=== PATIENT | female | born 1985 | race Caucasian/White ===

== ENCOUNTER 2016-11-20 04:20 | Observation (INO) | payer MEDICARE, MEDICAID ==
[2016-11-20] MEDS ORDERED: Dextrose 50% SYRINGE Inj (50 ml) ONE (04:31)
[2016-11-20 04:36] VITALS: BMI 26.4
[2016-11-20] MEDS ORDERED: Dextrose 50% SYRINGE Inj (50 ml) IVP STA ×2 (04:39→04:42)
--- NOTE | 2016-11-20 04:45 | ED PDOC ---
Arrival/HPI - General Chief Complaint: Medical Clearance Time Seen by Provider: 11/20/16 04:22 Historian: Patient, EMS - Critical Care Critical Care Minutes: 30 minutes Narrative Critical Care (Text): hypoglycemia management - History of Present Illness Narrative History of Present Illness (Text): 11/20/16 04:42 Elsy Beauchamp is a 31 year old female, with a history of hypertension, diabetes , ESRD on dialysis, CABG with stents, and gastropariesis, presents to the emergency department via ambulance for evaluation hypoglycemia with blood glucose level of 29 mg/dl. Patient's daughter called the ambulance after patient became unconscious. En route, patient was given 1mg glucagon. Patient is alert, oriented X3 in the ed and is able to answer questions in complete sentences. Patient reports that she took her last insulin shot at 6 p.m. yesterday evening and reports of having a small meal last night. Oscar fever, chills, cough, difficulty breathing, abdominal pain, nausea, vomiting, diarrhea , or any other complaints, She is unsure of the possible causes for the symptoms. Denies any drug or alcohol use. Time/Duration: Prior to Arrival Symptom Onset: Gradual Severity Level: Moderate Activities at Onset: Light Context: Home Past Medical History - Provider Review Nursing Documentation Reviewed: Yes - Infectious Disease Hx of Infectious Diseases: None - Tetanus Immunization Tetanus Immunization: Unknown - Cardiac Hx Cardiac Disorders: Yes Hx Hypertension: Yes Hx Peripheral Edema: Yes (+2 edema to lower left leg ankle and foot) - Pulmonary Hx Respiratory Disorders: No Hx Pneumonia: No - Neurological Hx Neurological Disorder: No - HEENT Hx HEENT Disorder: Yes (eyeglasses) - Renal Hx Renal Disorder: Yes (anuria) Hx Dialysis: Yes ([facility]) - Endocrine/Metabolic Hx Diabetes Mellitus Type 1: Yes - Hematological/Oncological Hx Blood Disorders: No Hx Anemia: No - Integumentary Other/Comment: lle dark colored scarring from lle sx, dry discolored skin to ankle and foot, with +2 edema to lle ankle and foot pitting, multiple tatoos, small red foot ulcer to bottom of left foot >5cm x 1cm, multiple dry skin areas and discolorations ble - Musculoskeletal/Rheumatological Hx Falls: No - Gastrointestinal Hx Gastroesophageal Reflux: Yes - Genitourinary/Gynecological Hx Genitourinary Disorders: Yes (pt does not void) Other/Comment: lmp 4 yrs ago - Psychiatric Hx Anxiety: Yes Hx Depression: Yes Hx Substance Use: No - Surgical History Hx Appendectomy: Yes Hx Cardiac Catheterization: Yes Hx Coronary Stent: Yes (x6) Other/Comment: pt has old valarie shunt not in use and right arm fistula that is used for dialysis, c section, pt tripped and fx left leg and left ft had sx 2014 had hardware removed march 2016, pt denies fall, just tripped, r cw pac - Anesthesia Hx Anesthesia: Yes Hx Anesthesia Reactions: No Hx Malignant Hyperthermia: No - Suicidal Assessment Feels Threatened In Home Enviroment: No Family/Social History - Physician Review Nursing Documentation Reviewed: Yes Family/Social History: No Known Family HX Smoking Status: Never Smoked Hx Alcohol Use: No Hx Substance Use: No Hx Substance Use Treatment: No Allergies/Home Meds Allergies/Adverse Reactions: Allergies acetaminophen [From Percocet] Adverse Reaction (Verified 05/22/16 18:33) RASH codeine Adverse Reaction (Verified 05/22/16 18:33) RASH morphine Adverse Reaction (Verified 05/22/16 18:33) RASH oxycodone HCl [From Percocet] Adverse Reaction (Verified 05/22/16 18:33) RASH flu shot Adverse Reaction (Uncoded 05/22/16 18:33) SHORTNESS OF BREATH Home Medications: Home Meds Medication Instructions Recorded Confirmed Atorvastatin [Lipitor] 40 mg PO HS 05/23/14 07/07/16 Clonidine HCl [Catapres] 0.3 mg PO TID 05/23/14 07/07/16 Clopidogrel [Plavix] 75 mg PO DAILY 05/23/14 07/07/16 Metoclopramide HCl [Reglan] 5 mg PO DAILY 05/23/14 07/07/16 Nifedipine [Nifedipine ER] 90 mg PO DAILY 05/23/14 07/07/16 Prochlopera 10 mg PO DAILY 05/23/14 07/07/16 Sevelamer Carbonate [Renvela] 800 mg PO TID 05/23/14 07/07/16 clonazePAM [Klonopin] 0.5 mg PO BID 05/23/14 07/07/16 Aspirin [Aspirin Chewable] 81 mg PO DAILY 05/21/16 07/07/16 Ergocalciferol (Vitamin D2) 50,000 units PO Q30D 05/21/16 07/07/16 [Vitamin D2] Isosorbide Mononitrate [Imdur] 120 mg PO DAILY 05/21/16 07/07/16 Valsartan [Diovan] 160 mg PO DAILY 05/21/16 07/07/16 Metoprolol Tartrate [Lopressor] 50 mg PO BID 05/23/16 07/07/16 Levetiracetam [Keppra] 500 mg PO DAILY 06/26/16 07/07/16 Review of Systems - Physician Review All systems were reviewed & negative as marked: Yes - Review of Systems Constitutional: Other (hypoglycemia ). absent: Fatigue, Fevers Respiratory: absent: SOB, Cough, Sputum Cardiovascular: absent: Chest Pain Gastrointestinal: absent: Abdominal Pain, Diarrhea, Nausea, Vomiting Neurological: absent: Headache, Dizziness Physical Exam Vital Signs Reviewed: Yes Vital Signs Temp Pulse Resp BP Pulse Ox 11/20/16 05:15 110 H 14 147/85 100 11/20/16 05:00 112 H 14 132/86 100 11/20/16 04:45 94.9 F L 114 H 16 169/99 H 88 L Temperature: Hypothermic Blood Pressure: Hypertensive Pulse: Tachycardic Respiratory Rate: Normal Appearance: Positive for: Non-Toxic Pain Distress: Mild Mental Status: Positive for: Alert and Oriented X 3, other (Alert and OX3, but drowsy ) - Systems Exam Head: Present: Atraumatic, Normocephalic Pupils: Present: PERRL Extroacular Muscles: Present: EOMI Conjunctiva: Present: Normal Nose (Internal): Present: Other (right nasal trumpet placed by EMT, removed in the ed. Dried blood in right nares ) Respiratory/Chest: Present: Rhonchi. No: Respiratory Distress, Accessory Muscle Use Cardiovascular: Present: Regular Rate and Rhythm, Normal S1, S2. No: Murmurs Skin: Present: Warm, Dry, Normal Color. No: Rashes Psychiatric: Present: Alert, Oriented x 3 Medical Decision Making ED Course and Treatment: 11/20/16 04:55 Impression: A 31 year old female who presents to the ed for hypoglycemia. Blood glucose level at home, per EMS, was 29 mg/dl. At ED, patient is alert, Oriented X3 but drowsy. She is able to communicate in full sentences. Differential Diagnosis: Hypoglycemia secondary to medication vs. diet. r/o infections pathology Plan: -- EKG -- Labs -- CXR -- Dextrose 5% -- Dextrose 50% injection -- Zofran -- Blood culture Progress Notes: 11/20/16 04:58 Patient with a glucose level of 29. Administered Dextrose 50% X2 immediately upon arrival to ED. 11/20/16 05:07 EKG interpreted by me: Sinus Tachycardia @ 114 bpm with bifascicular block. 11/20/16 05:24 CXR interpreted by me: No acute disease. 11/20/16 05:31 Patient was hypothermic with a temp of 94F. Patient placed on Shruti hugger. 11/20/16 06:59 Dr. Gómez evaluated the patient and wanted to admit to Telemetry. Admission changed because the patient is drowsy and with some altered mental status. - Lab Interpretations Lab Results: 11/20/16 04:37 11/20/16 04:37 Lab Results 11/20/16 05:10: POC Glucose (mg/dL) 172 H 11/20/16 04:37: WBC 9.0 D, RBC 4.21, Hgb 13.0, Hct 37.6, MCV 89.3, MCH 30.9, MCHC 34.6, RDW 17.3 H, Plt Count 145, MPV 11.2 H, Gran % 63.3, Lymph % (Auto) 18.1 L, [place] % (Auto) 12.2 H, Eos % (Auto) 5.6 H, Baso % (Auto) 0.8, Gran # 5.69 , Lymph # 1.6, [place] # 1.1 H, Eos # 0.5, Baso # 0.07, PT 12.8 H, INR 1.19 H, APTT 30.3, Sodium 133, Potassium 4.1, Chloride 90 L, Carbon Dioxide 30, Anion Gap 17, BUN 67 H, Creatinine 5.3 H, Est GFR ( Amer) 11, Est GFR (Non-Af Amer) 9, Random Glucose 64 L, Calcium 9.9, Phosphorus 5.1 H, Magnesium 2.4 H, Total Bilirubin 1.2, AST 61 H, ALT 23, Alkaline Phosphatase 472 H, Total Protein 8.6 H, Albumin 4.3, Globulin 4.3, Albumin/Globulin Ratio 1.0 L 11/20/16 04:23: POC Glucose (mg/dL) 30 L* I have reviewed the lab results: Yes - RAD Interpretation Radiology Orders: 11/20/16 04:40 CHEST PORTABLE [RAD] Stat Scientific Advisor: ED Physician - EKG Interpretation Interpreted by ED Physician: Yes Type: 12 lead EKG - Medication Orders Current Medication Orders: Discontinued Medications Dextrose (Dextrose 50% Inj) Confirm Administered Dose 50 ml .ROUTE .STK-MED ONE Stop: 11/20/16 04:32 Last Admin: 11/20/16 04:45 Dose: Dextrose (Dextrose 50% Inj) 50 ml IVP STAT STA Stop: 11/20/16 04:40 Last Admin: 11/20/16 04:42 Dose: 50 ML IVP Administration Document 11/20/16 04:42 GMD (Rec: 11/20/16 04:42 GMD [id number]) Charges for Administration # of IVP Administrations 1 Dextrose (Dextrose 50% Inj) 50 ml IVP STAT STA Stop: 11/20/16 04:43 Dextrose/Sodium Chloride (Dextrose 5%/0.45% Ns 1000 Ml) 250 mls @ 75 mls/hr IV .Q3H20M TOMEKA Last Admin: 11/20/16 04:56 Dose: 75 MLS/HR eMAR Start Stop Document 11/20/16 04:56 YP (Rec: 11/20/16 04:56 YP [id number]) Intravenous Solution Start Date 11/20/16 Start Time 04:56 Ondansetron HCl (Zofran Inj) 4 mg IVP STAT STA Stop: 11/20/16 04:56 Last Admin: 11/20/16 05:01 Dose: 4 MG IVP Administration Document 11/20/16 05:01 YP (Rec: 11/20/16 05:01 YP [id number]) Charges for Administration # of IVP Administrations 1 Ondansetron HCl (Zofran Inj) Confirm Administered Dose 4 mg .ROUTE .STK-MED ONE Stop: 11/20/16 05:01 Last Admin: 11/20/16 05:01 Dose: - Scribe Statement The provider has reviewed the documentation as recorded by the Fani Palacio Provider Attestation: All medical record entries made by the Scribe were at my direction and personally dictated by me. I have reviewed the chart and agree that the record accurately reflects my personal performance of the history, physical exam, medical decision making, and the department course for this patient. I have also personally directed, reviewed, and agree with the discharge instructions and disposition. Disposition/Present on Arrival - Present on Arrival Any Indicators Present on Arrival: Yes History of DVT/PE: No History of Uncontrolled Diabetes: Yes Urinary Catheter: No History of Decub. Ulcer: No History Surgical Site Infection Following: None - Disposition Have Diagnosis and Disposition been Completed?: Yes Diagnosis: Hypoglycemia Disposition: HOSPITALIZED Disposition Time: 07:00 Patient Plan: Admission Patient Problems: Current Active Problems Problem Status Diagnosed Diabetic ketoacidosis Acute Hematemesis/vomiting blood Acute Hyperkalemia Acute Condition: FAIR
[2016-11-20] MEDS ORDERED: DEXTROSE IV SCH (05:00)
[2016-11-20] MEDS ORDERED: [UNRECOGNIZED DRUG - OTHER] IV SCH (05:00)
[2016-11-20 05:02] LABS: ADD MANUAL DIFF? NO
[2016-11-20 05:06] LABS: BASO # 0.07 K/mm3 (0.0-2.0); BASO % 0.8 % (0.0-3.0); EOS # 0.5 (0.0-0.7); EOS % 5.6 % (1.5-5.0); GRAN # 5.69 (1.4-6.5); GRAN % 63.3 % (50.0-68.0); HEMATOCRIT 37.6 % (36.0-48.0); LYMPH # 1.6 (1.2-3.4); LYMPH % 18.1 % (22.0-35.0); MEAN CELL VOLUME 89.3 fL (80.0-105.0); MEAN CORPUSCULAR HEMOGLOBIN 30.9 pg (25.0-35.0); MEAN CORPUSCULAR HGB CONC 34.6 g/dl (31.0-37.0); MEAN PLATELET VOLUME 11.2 fl (7.0-11.0); MONO # 1.1 (0.1-0.6); MONO % 12.2 % (1.0-6.0); PLATELET COUNT 145 10^3/uL (120.0-450.0); RED CELL DISTRIBUTION WIDTH 17.3 % (11.5-14.5)
[2016-11-20 05:14] LABS: BILIRUBIN,TOTAL 1.2 mg/dL (0.2-1.3); CALCIUM 9.9 mg/dL (8.4-10.5); MAGNESIUM 2.4 mg/dL (1.7-2.2); PHOSPHOROUS 5.1 mg/dL (2.5-4.5); POTASSIUM 4.1 mmol/L (3.6-5.0); TOTAL PROTEIN 8.6 g/dL (5.8-8.3)
[2016-11-20 05:19] LABS: INR 1.19 (0.93-1.08); PARTIAL THROMBOPLASTIN TIME 30.3 Seconds (23.7-30.8)
--- NOTE | 2016-11-20 05:52 | CP.PCM.HP ---
<SilviaShannon - Last Filed: 11/20/16 07:36> History of Present Illness - History of Present Illness History of Present Illness: PGY [address] Gómez Bed 2 31 year old female, with PMH of HTN, diabetes, ESRD on dialysis M E F at [facility], CABG with stents, and gastropariesis, was brought in by ambulance for hypoglycemia with blood glucose level of 29 mg/dl. Patient's daughter called the ambulance after patient became unconscious. En route, patient was given 1mg glucagon. Patient is alert, oriented X3 in the ed, answers in 1-2 words with short attention spans, but frequently dozing off with snores in the middle of conversations. Patient reports that she took her last insulin shot at 6 p.m. yesterday evening. Pt states that she only had a small meal last night with N/V for the past 3 days. She also complains of stomach pain but unable to provides more details due to somnolence. Pt cannot recall the name of the insulin (short vs senior living), and told me that she only take it once daily. Denies sickness recently. Denies recent change of medications or skipping doses. Pt was hypothermic on iain hugger. Sinus Tachycardia @ 114 bpm with bifascicular block. CXR showed no acute disease. ROS - Oscar fever, chills, cough, difficulty breathing, abdominal pain, nausea, vomiting, diarrhea small red foot ulcer to bottom of left foot >5cm x 1cm, PMH DM type 1 w/ neuropathy CAD s/p multiple stents, CABG HTN ESR on HD (MWF), anuric, Anemia anxiety, gastroparesis OBGYN LMP 4 years ago x1 PSH CABG, Cardiac catherterization with 6 stents AV fistulas x 2 (Old valarie shunt not in use; Right arm fistula that is used for dialysis) B/L benign breast mass removal, peritoneal dialysis catheter c section Surgery on left leg (pt tripped and fx left leg and left ft had sx 12/2014 had hardware removed march 2016) Appendectomy FH Unknown (Adopted) SH Denies smoking, Etoh, illicit drug use Lives with 9 year old daughter All Acetaminophen Percocet codeine morphine oxycodone flu shot Adverse Reaction - SHORTNESS OF BREATH Med clonazePAM [Klonopin] 0.5 mg PO BID Valsartan [Diovan] 160 mg PO DAILY Sevelamer Carbonate [Renvela] 800 mg PO TID Prochlopera 10 mg PO DAILY Nifedipine [Nifedipine ER] 90 mg PO DAILY Metoprolol Tartrate [Lopressor] 50 mg PO BID Metoclopramide HCl [Reglan] 5 mg PO DAILY Levetiracetam [Keppra] 500 mg PO DAILY Isosorbide Mononitrate [Imdur] 120 mg PO DAILY Lispro 4u SC AC Ergocalciferol (Vitamin D2) 50,000 units PO Q30D Clopidogrel [Plavix] 75 mg PO DAILY Clonidine HCl [Catapres] 0.3 mg PO TID Aspirin [Aspirin Chewable] 81 mg PO DAILY Lipitor 40 HS PMD: Yaneli Out pt cards: Nathan Outpt nephron: Phil Pharm: [facility] ([place]) Present on Admission - Present on Admission Any Indicators Present on Admission: No Past Patient History - Infectious Disease Hx of Infectious Diseases: None - Tetanus Immunizations Tetanus Immunization: Unknown - Past Medical History & Family History Past Medical History?: Yes - Past Social History Smoking Status: Never Smoked - CARDIAC Hx Cardiac Disorders: Yes Hx Hypertension: Yes Hx Peripheral Edema: Yes (+2 edema to lower left leg ankle and foot) - PULMONARY Hx Respiratory Disorders: No Hx Pneumonia: No - NEUROLOGICAL Hx Neurological Disorder: No - HEENT Hx HEENT Problems: Yes (eyeglasses) - RENAL Hx Chronic Kidney Disease: Yes (anuria) Hx Dialysis: Yes ([facility]) - ENDOCRINE/METABOLIC Hx Diabetes Mellitus Type 1: Yes - HEMATOLOGICAL/ONCOLOGICAL Hx Blood Disorders: No Hx Anemia: No - INTEGUMENTARY Other/Comment: lle dark colored scarring from lle sx, dry discolored skin to ankle and foot, with +2 edema to lle ankle and foot pitting, multiple tatoos, small red foot ulcer to bottom of left foot >5cm x 1cm, multiple dry skin areas and discolorations ble - MUSCULOSKELETAL/RHEUMATOLOGICAL Hx Falls: No - GASTROINTESTINAL Hx Gastroesophageal Reflux: Yes - GENITOURINARY/GYNECOLOGICAL Hx Genitourinary Disorders: Yes (pt does not void) Other/Comment: lmp 4 yrs ago - PSYCHIATRIC Hx Anxiety: Yes Hx Depression: Yes Hx Substance Use: No - SURGICAL HISTORY Hx Appendectomy: Yes Hx Cardiac Catheterization: Yes Hx Coronary Stent: Yes (x6) Other/Comment: pt has old valarie shunt not in use and right arm fistula that is used for dialysis, c section, pt tripped and fx left leg and left ft had sx 2014 had hardware removed march 2016, pt denies fall, just tripped, r cw pac - ANESTHESIA Hx Anesthesia: Yes Hx Anesthesia Reactions: No Hx Malignant Hyperthermia: No Meds Allergies/Adverse Reactions: Allergies Allergy/AdvReac Type Severity Reaction Status Date / Time acetaminophen [From Percocet] AdvReac RASH Verified 11/20/16 12:51 codeine AdvReac RASH Verified 11/20/16 12:51 morphine AdvReac RASH Verified 11/20/16 12:51 oxycodone HCl [From Percocet] AdvReac RASH Verified 11/20/16 12:51 flu shot AdvReac SHORTNESS Uncoded 11/20/16 12:51 OF BREATH Physical Exam - Constitutional Additional comments: Somnolance, only answer in 1-2 words, dozed off to sleep with snores, easily arousable - Head Exam Head Exam: ATRAUMATIC, NORMOCEPHALIC - Eye Exam Eye Exam: EOMI, Normal appearance. absent: Scleral icterus - ENT Exam ENT Exam: Mucous Membranes Moist - Neck Exam Neck exam: Negative for: Meningismus - Respiratory Exam Respiratory Exam: Clear to Auscultation Bilateral. absent: Rales, Rhonchi, Wheezes - Cardiovascular Exam Cardiovascular Exam: REGULAR RHYTHM, +S1, +S2. absent: Systolic Murmur - GI/Abdominal Exam GI & Abdominal Exam: Normal Bowel Sounds, Soft, Tenderness Additional comments: Pt states that she has epigastric pain, but no grimace upon palpation. - Extremities Exam Extremities exam: Positive for: normal capillary refill, pedal edema (1+ pitting b/l LLE. Red healed arterial ulcer R anterior leg. thin long skin effacement on R rowell. L ankle swollen with no increased warm or pain), pedal pulses present - Psychiatric Exam Additional comments: Somnolance - Skin Skin Exam: Dry, Warm Additional comments: On iain hebert Results - Vital Signs Recent Vital Signs: Last Vital Signs Temp 94.9 F L 11/20/16 04:45 Pulse 110 H 11/20/16 05:15 Resp 14 11/20/16 05:15 BP 147/85 03/17/17 05:15 Pulse Ox 100 11/20/16 05:15 - Labs Result Diagrams: 11/20/16 04:37 11/20/16 04:37 Labs: Laboratory Results - last 24 hr 11/20/16 11/20/16 11/20/16 04:23 04:37 05:10 WBC 9.0 D RBC 4.21 Hgb 13.0 Hct 37.6 MCV 89.3 MCH 30.9 MCHC 34.6 RDW 17.3 H Plt Count 145 MPV 11.2 H Gran % 63.3 Lymph % (Auto) 18.1 L [place] % (Auto) 12.2 H Eos % (Auto) 5.6 H Baso % (Auto) 0.8 Gran # 5.69 Lymph # 1.6 [place] # 1.1 H Eos # 0.5 Baso # 0.07 PT 12.8 H INR 1.19 H APTT 30.3 Sodium 133 Potassium 4.1 Chloride 90 L Carbon Dioxide 30 Anion Gap 17 BUN 67 H Creatinine 5.3 H Est GFR ( Amer) 11 Est GFR (Non-Af Amer) 9 POC Glucose (mg/dL) 30 L* 172 H Random Glucose 64 L Calcium 9.9 Phosphorus 5.1 H Magnesium 2.4 H Total Bilirubin 1.2 AST 61 H ALT 23 Alkaline Phosphatase 472 H Total Protein 8.6 H Albumin 4.3 Globulin 4.3 Albumin/Globulin Ratio 1.0 L Assessment & Plan - Assessment and Plan (Free Text) Plan: 31 year old female, with PMH of HTN, diabetes, ESRD on dialysis M [facility] F at [facility], CABG with stents, and gastropariesis, was brought in by ambulance for hypoglycemia of 29, (last dose insulin 2 u at 6pm). She was found hypothermic 94.9 on iain hugger, Sinus Tachycardia @ 114 bpm with bifascicular block. CXR showed no acute disease. Pt was somnolance but easily arousable. Pt complained of N/V x 3 days with epigastric pain. She is admitted for AMS, hypoglycemia, and Sepsis unknown source. Sepsis of unknown source - hypothermia Keep on iain hugger. D/C at rectal temp 98 - vanco 1g x 1, cefepime - ID consult - Anuric, no urine culture - blood culture sent Somnolance, s/p LOC - due to hypothermic, hypoglycemic - R/O infection causes Septic work up; When pt stable, consider CT Abdomin and pelvis - R/O ischemic cause If mentation does not improve, consider CT head - R/O iatrogenic cause insulin overdose? - R/O Hypercapnia ABG shock panel - Hold klonopin Hypoglycemia Hx IDDM - d/c fluid for now - accu check q3 - zofran PRN - hold insulin - a1c Epigastric pain with Hx N/V x 3 days Transaminitits - check amylase, lipase - hepatitis panel JAUN on ESRD - Nephro consult Prophylaxis - protonix, heparin SC q8 HTN - continue home Valsartan, Nifedipine, Lopressor, Clonidine CAD s/p stents - Imdur, plavix, ASA, lipitor HypoPhos/ESRD - continue home Sevelamer, D2, Gastroparesis - continue Reglan DM neuropathy - Keppra R/S/D/w Dr. Gómez - Date & Time Date: 11/20/16 Time: 06:23 <Bang Gómez Q - Last Filed: 11/24/16 22:55> Results - Vital Signs Recent Vital Signs: Last Vital Signs Temp 99.0 F 11/21/16 12:00 Pulse 80 11/21/16 17:13 Resp 20 11/21/16 12:00 BP 159/99 H 11/21/16 12:00 Pulse Ox 100 11/21/16 06:00 - Labs Result Diagrams: 11/21/16 07:59 11/21/16 07:59 Attending/Attestation - Attestation I have personally seen and examined this patient.: Yes I have fully participated in the care of the patient.: Yes I have reviewed all pertinent clinical information: Yes
[2016-11-20] MEDS ORDERED: Cefepime 1gm in NS 100ml 100 ML IVPB ONE (07:20)
[2016-11-20] MEDS ORDERED: Vancomycin 500 mg Inj IVPB ONE (07:20)
[2016-11-20] MEDS ORDERED: Vancomycin 1gm in NS 250ml 250 ML IVPB STA (07:21)
[2016-11-20 07:49] LABS: AMYLASE 145 U/L (35-125); LIPASE 123 U/L (23-300)
[2016-11-20 08:16] LABS: ARTERIAL BLOOD GAS HCO3 27.2 mmol/L (21-28); ARTERIAL BLOOD GAS PH 7.39 (7.35-7.45)
--- NOTE | 2016-11-20 08:56 | RAD ---
HISTORY: Sepsis Patient COMPARISON: 07/07/2016 FINDINGS: LUNGS: No active pulmonary disease. PLEURA: No significant pleural effusion identified, no pneumothorax apparent. CARDIOVASCULAR: Moderate cardiomegaly OSSEOUS STRUCTURES: Sternal wires VISUALIZED UPPER ABDOMEN: Normal. OTHER FINDINGS: None. IMPRESSION: No active disease.
[2016-11-20] MEDS ORDERED: CLONIDINE HCL 0.3 MG PO SCH (10:00)
[2016-11-20] MEDS ORDERED: Ergocalciferol 50,000 Intl Units Cap PO SCH ×2 (10:00)
[2016-11-20] MEDS ORDERED: Non Formulary Medication (Sevelamer Carbonate [Renvela] 800 MG) PO SCH (10:00)
--- NOTE | 2016-11-20 10:36 | CARD ---
APPROVED REPORT EKG Measurement Heart [id number] <Conclusion> Sinus tachycardia Right bundle branch block LAHB Inferior infarct, old NSSTW changes
[2016-11-20] MEDS: NIFEdipine 90 mg ER Tab PO SCH (12:17)
--- NOTE | 2016-11-20 14:16 | CT ---
PROCEDURE: CT HEAD WITHOUT CONTRAST. HISTORY: AMS, Lethargy COMPARISON: 02/15/2014 TECHNIQUE: Axial computed tomography images were obtained through the head/brain without intravenous contrast. Radiation dose: Total exam DLP = 688 mGy-cm. FINDINGS: HEMORRHAGE: No intracranial hemorrhage. BRAIN: No mass effect or edema. No atrophy or chronic microvascular ischemic changes. VENTRICLES: Unremarkable. No hydrocephalus. CALVARIUM: Unremarkable. PARANASAL SINUSES: Unremarkable as visualized. No significant inflammatory changes. MASTOID AIR CELLS: Unremarkable as visualized. No inflammatory changes. OTHER FINDINGS: None. IMPRESSION: Normal CT of the Head.
--- NOTE | 2016-11-20 15:24 | CON ---
DATE: 11/20/2016 REASON FOR CONSULTATION: Hyponatremia, hypertension, need for dialysis. HISTORY OF PRESENTING ILLNESS: A 31-year-old lady with history of NIDDM, hypertension, ESRD, depende nce on pain medication, CHF, CAD, is admitted because of finding of low blood sugar at home. The pat ient is currently very groggy, but arousable. As per the ER note, patient's daughter called the ambu gala because patient was found unconscious. Her blood glucose was 29. She was given 1 mg of glucag on . She gave a history of nausea and vomiting for 3 days prior to admission. She also reporte d some abdominal pain. In the Emergency Room, she was found to be hypothermic, tachycardic. Blood pressure was 147/85, temp erature was 94.9. PAST MEDICAL AND SURGICAL HISTORY: IDDM, CAD, hypertension, ESRD, anemia, gastroparesis, dependence on pain medication, anemia of chronic disease. FAMILY HISTORY: Not available. SOCIAL HISTORY: No smoking, no alcohol use, no IV drug abuse. ALLERGIES: TYLENOL, PERCOCET, CODEINE, MORPHINE, OXYCODONE. MEDICATIONS AT HOME: Diovan 160, sevelamer 800 t.i.d., nifedipine ER 90, Lopressor 50 b.i.d., Reglan 5 daily, Keppra 500, insulin 120, Plavix 75, clonidine 0.3 three times a day, aspirin, Lipitor. REVIEW OF SYSTEMS: All systems are reviewed, pertinent positives are mentioned in the history of pre senting illness, rest unremarkable. PHYSICAL EXAMINATION: GENERAL: A young lady, lying in bed, barely arousable. VITAL SIGNS: Blood pressure 129/80, heart rate 115, respiratory rate 18, temperature 99, T-max is 99 . HEENT: Normocephalic, atraumatic, pupils sluggish, reactive to light. NECK: Supple, no JVD. LUNGS: Bilateral equal air entry. CARDIAC: S1, S2, regular rate and rhythm, no murmur, no rub. ABDOMEN: Obese, distended, soft, nontender, bowel sounds present. EXTREMITIES: 2+ pitting edema of the lower extremities. INTAKE AND OUTPUT: Not charted. LABORATORY DATA: Sodium 133, potassium 4.1, chloride 90, CO2 30, BUN 67, creatinine 5.3, glucose 64, calcium 9.9, phosphorus 5.1, magnesium 2.4, AST 61, ALT 23, albumin 4.3. Amylase 145, lipase 123. Hepatitis profile negative. WBC 9.0, hemoglobin 13, hematocrit 37.6, platelets 145. ASSESSMENT: 1. Hypoglycemia. 2. Nausea, vomiting, abdominal pain. 3. Hyponatremia/alkalemia, likely secondary to vomiting. 4. Hypertension, well controlled. 5. Insulin-dependent diabetes mellitus. 6. End-stage renal disease. PLAN: 1. Check hemoglobin A1c. 2. Monitor fingersticks closely. 3. Dialysis today. 4. Ultrafiltrate about 2 kilograms. Thank you for the courtesy of this consultation. We will follow this patient closely with you. Olena Lubin MD cc: [id number] TT: 11/20/2016 14:22:22 Confirmation # [id number] Dictation # [id number] 11/20/2016 14:23:54
--- NOTE | 2016-11-20 18:13 | CP.PCM.CON ---
History of Present Illness - History of Present Illness History of Present Illness: Infectious Disease Consultation: November 20, 2016 31 yo female with multiple medical issues including chronic end stage organ damage such as ESRD on HD. Patient with known non-compliance with medications and frequent [place] [facility] [place] [facility] [place] [facility] [place] Patient presents this time for hypoglycemia and hypothermia. Blood glucose was as low as 29 in the field. She apparently lost consciousness at home. She was [place] [facility]. Patient was tachycardic as well. The patient is currently at HD. Patient is frequently in the hospital. PMHx: Type I Diabetes Mellitus with diabetic neuropathy, Coronary Artery Disease, Hypertension, ESRD on HD, Anemia, Anxiety, gastroparesis. PSHx: CABG, , AV fistula x 2, Left leg ORIF, appendectomy Allergies: Acetaminophen, Codeine, Morphine, Oxycodone HCl, flu shot Social Hx: Patient denies tobacco, EtOH, or illicit drug use. Has 9 yo daughter Active Medications Aspirin (Aspirin Chewable) 81 mg PO DAILY [facility] Last Admin: 11/20/16 10:26 Dose: 81 mg Atorvastatin Calcium (Lipitor) 40 mg PO HS [facility] Clopidogrel Bisulfate (Plavix) 75 mg PO DAILY [facility] Last Admin: 11/20/16 10:26 Dose: 75 mg Ergocalciferol (Drisdol 50,000 Intl Units Cap) 1 cap PO Q30D [facility] Last Admin: 11/20/16 10:26 Dose: 1 cap Heparin Sodium (Porcine) (Heparin) 5,000 units SC Q8 [facility] PRN Reason: Protocol Last Admin: 11/20/16 13:43 Dose: Not Given Isosorbide Mononitrate (Imdur) 120 mg PO DAILY [facility] Last Admin: 11/20/16 10:26 Dose: 120 mg Levetiracetam (Keppra) 500 mg PO DAILY [facility] Last Admin: 11/20/16 10:26 Dose: 500 mg Metoclopramide HCl (Reglan) 5 mg PO DAILY [facility] Last Admin: 11/20/16 10:26 Dose: 5 mg Metoprolol Tartrate (Lopressor) 50 mg PO BID [facility] Last Admin: 11/20/16 10:26 Dose: 50 mg Nifedipine (Procardia Xl) 90 mg PO DAILY [facility] Last Admin: 11/20/16 12:17 Dose: Not Given Ondansetron HCl (Zofran Inj) 2 mg IVP Q4 PRN PRN Reason: Nausea/Vomiting Pantoprazole Sodium (Protonix Inj) 40 mg IVP DAILY [facility] Last Admin: 11/20/16 10:19 Dose: 40 mg Sevelamer HCl (Renagel) 800 mg PO TID [facility] Last Admin: 11/20/16 13:44 Dose: Not Given Family Hx: none given ROS: Patient denies fevers, chills, headaches, dizziness, chest pain, abdominal pain , melena, hematuria, hematemesis, diarrhea, vision loss, hearing loss. Past Patient History - Infectious Disease Hx of Infectious Diseases: None - Tetanus Immunizations Tetanus Immunization: Unknown - Past Medical History & Family History Past Medical History?: Yes - Past Social History Smoking Status: Current Some Days Smoker - CARDIAC Hx Cardiac Disorders: Yes (CABG WITH 6 HEART STENTS) Hx Hypertension: Yes Hx Peripheral Edema: Yes (+2 edema to lower left leg ankle and foot) - PULMONARY Hx Respiratory Disorders: Yes (PULMONARY EDEMA) Hx Pneumonia: No - NEUROLOGICAL Hx Neurological Disorder: Yes (NEUROPATHY) - HEENT Hx HEENT Problems: Yes (eyeglasses) - RENAL Hx Chronic Kidney Disease: Yes (anuria) Hx Dialysis: Yes ([facility]) Date of Last Dialysis Treatment: 11/18/16 - ENDOCRINE/METABOLIC Hx Endocrine Disorders: Yes (UNCONTROLLED DM) Hx Diabetes Mellitus Type 1: Yes - HEMATOLOGICAL/ONCOLOGICAL Hx Blood Disorders: No Hx Anemia: No - INTEGUMENTARY Other/Comment: lle dark colored scarring from lle sx, dry discolored skin to ankle and foot, with +2 edema to lle ankle and foot pitting, multiple tatoos, small red foot ulcer to bottom of left foot >5cm x 1cm, multiple dry skin areas and discolorations ble - MUSCULOSKELETAL/RHEUMATOLOGICAL Hx Musculoskeletal Disorders: Yes Hx Falls: Yes Hx Fractures: Yes (FX LEG AND /FOOT LEFT,HARDWARE REMOVED MARCH 2016) - GASTROINTESTINAL Hx Gastrointestinal Disorders: Yes (GI BLEED,GASTROPARESIS,APPENDECTOMY,) Hx Gall Bladder Disease: Yes (CHOLECYSTITIS) Hx Gastroesophageal Reflux: Yes Hx Pancreatitis: Yes - GENITOURINARY/GYNECOLOGICAL Hx Genitourinary Disorders: Yes (pt does not void-ANURIC, C SECTION X 1) Other/Comment: lmp 4 yrs ago - PSYCHIATRIC Hx Psychophysiologic Disorder: Yes Hx Anxiety: Yes Hx Depression: Yes Hx Substance Use: No - SURGICAL HISTORY Hx Surgeries: Yes Hx Appendectomy: Yes Hx Cardiac Catheterization: Yes Hx Coronary Stent: Yes (x6) Other/Comment: pt has old valarie shunt not in use and right arm fistula that is used for dialysis, c section, pt tripped and fx left leg and left ft had sx 2014 had hardware removed march 2016, pt denies fall, just tripped, r cw pac - ANESTHESIA Hx Anesthesia: Yes Hx Anesthesia Reactions: No Hx Malignant Hyperthermia: No Meds Allergies/Adverse Reactions: Allergies Allergy/AdvReac Type Severity Reaction Status Date / Time acetaminophen [From Percocet] AdvReac RASH Verified 11/20/16 12:51 codeine AdvReac RASH Verified 11/20/16 12:51 morphine AdvReac RASH Verified 11/20/16 12:51 oxycodone HCl [From Percocet] AdvReac RASH Verified 11/20/16 12:51 flu shot AdvReac SHORTNESS Uncoded 11/20/16 12:51 OF BREATH - Medications Medications: Current Medications Aspirin (Aspirin Chewable) 81 mg PO DAILY [facility] Last Admin: 11/20/16 10:26 Dose: 81 mg Atorvastatin Calcium (Lipitor) 40 mg PO HS [facility] Clopidogrel Bisulfate (Plavix) 75 mg PO DAILY [facility] Last Admin: 11/20/16 10:26 Dose: 75 mg Ergocalciferol (Drisdol 50,000 Intl Units Cap) 1 cap PO Q30D [facility] Last Admin: 11/20/16 10:26 Dose: 1 cap Heparin Sodium (Porcine) (Heparin) 5,000 units SC Q8 [facility] PRN Reason: Protocol Last Admin: 11/20/16 13:43 Dose: Not Given Isosorbide Mononitrate (Imdur) 120 mg PO DAILY [facility] Last Admin: 11/20/16 10:26 Dose: 120 mg Levetiracetam (Keppra) 500 mg PO DAILY [facility] Last Admin: 11/20/16 10:26 Dose: 500 mg Metoclopramide HCl (Reglan) 5 mg PO DAILY [facility] Last Admin: 11/20/16 10:26 Dose: 5 mg Metoprolol Tartrate (Lopressor) 50 mg PO BID [facility] Last Admin: 11/20/16 10:26 Dose: 50 mg Nifedipine (Procardia Xl) 90 mg PO DAILY [facility] Last Admin: 11/20/16 12:17 Dose: Not Given Ondansetron HCl (Zofran Inj) 2 mg IVP Q4 PRN PRN Reason: Nausea/Vomiting Pantoprazole Sodium (Protonix Inj) 40 mg IVP DAILY [facility] Last Admin: 11/20/16 10:19 Dose: 40 mg Sevelamer HCl (Renagel) 800 mg PO TID [facility] Last Admin: 11/20/16 13:44 Dose: Not Given Physical Exam - Constitutional Appears: Chronically Ill - Head Exam Head Exam: ATRAUMATIC, NORMOCEPHALIC - Eye Exam Eye Exam: EOMI, PERRL Pupil Exam: NORMAL ACCOMODATION, PERRL - ENT Exam ENT Exam: Mucous Membranes Moist, Normal External Ear Exam, TM's Normal Bilaterally - Neck Exam Neck exam: Positive for: Full Rom, Normal Inspection - Respiratory Exam Respiratory Exam: Clear to Auscultation Bilateral, NORMAL BREATHING PATTERN. absent: Rales, Rhonchi, Wheezes - Cardiovascular Exam Cardiovascular Exam: REGULAR RHYTHM, RRR, +S1, +S2 - GI/Abdominal Exam GI & Abdominal Exam: Normal Bowel Sounds, Soft. absent: Distended, Tenderness Additional comments: Pt claimed epigastric pain, but no reaction upon palpation or examination - Extremities Exam Additional comments: pedal edema (1+ pitting b/l LLE. Red healed arterial ulcer R anterior leg. thin long skin effacement on R rowell. L ankle swollen with no increased warm or pain) , pedal pulses present - Neurological Exam Neurological exam: Alert Additional comments: fatigue? - Skin Skin Exam: Intact, Normal Color Results - Vital Signs Recent Vital Signs: Last Vital Signs Temp 98.3 F 11/20/16 13:48 Pulse 83 11/20/16 14:00 Resp 18 11/20/16 13:48 BP 90/53 L 11/20/16 13:48 Pulse Ox 99 11/20/16 09:05 - Labs Result Diagrams: 11/20/16 04:37 11/20/16 04:37 Labs: Laboratory Results - last 24 hr 11/20/16 11/20/16 11/20/16 06:07 07:00 07:01 pCO2 pO2 HCO3 ABG pH ABG Total CO2 ABG O2 Saturation ABG Base Excess ABG Potassium Sodium Chloride Glucose Lactate FiO2 POC Glucose (mg/dL) 137 H 117 H Amylase 145 H Lipase 123 Arterial Blood Potassium Hepatitis A IgM Ab Negative Hep Bs Antigen Negative Hep B Core IgM Ab Negative Hepatitis C Antibody Negative 11/20/16 11/20/16 08:05 11:41 pCO2 45 pO2 100.0 HCO3 27.2 ABG pH 7.39 ABG Total CO2 28.6 H ABG O2 Saturation 96.4 ABG Base Excess 1.7 ABG Potassium 4.1 Sodium 137.0 Chloride 106.0 Glucose 94 Lactate 0.6 L FiO2 28.0 POC Glucose (mg/dL) 99 Amylase Lipase Arterial Blood Potassium 4.1 Hepatitis A IgM Ab Hep Bs Antigen Hep B Core IgM Ab Hepatitis C Antibody Assessment & Plan - Assessment and Plan (Free Text) Assessment: 31 yo female patient with extensive past medical history and multiple hospitalizations presenting with hypoglycemia, tachycardia, and hypothermia. [place] [facility] the past 3 days. Question of sepsis versus overdosing on her regular medications. Quintanilla cultures taken. On Cefepime and 1 dose of Vancomycin. Will review records at [facility]. Supportive care. Multiple chronic and end stage medical issues. Question of insulin overdose. Supportive care. Thank you for allowing me to participate in the care of the patient, we will follow with you.
[2016-11-21 07:01] VITALS: RESP 20; O2SAT 100
[2016-11-21 08:05] LABS: HEMATOCRIT 32.3 % (36.0-48.0); MEAN CELL VOLUME 88.7 fL (80.0-105.0); MEAN CORPUSCULAR HEMOGLOBIN 29.4 pg (25.0-35.0); MEAN CORPUSCULAR HGB CONC 33.1 g/dl (31.0-37.0); MEAN PLATELET VOLUME 11.7 fl (7.0-11.0); RED CELL DISTRIBUTION WIDTH 17.2 % (11.5-14.5)
[2016-11-21 08:16] LABS: BILIRUBIN,TOTAL 1.3 mg/dL (0.2-1.3); POTASSIUM 4.1 mmol/L (3.6-5.0); TOTAL PROTEIN 6.8 g/dL (5.8-8.3)
--- NOTE | 2016-11-21 09:15 | PN ---
DATE: 11/21/2016 SUBJECTIVE: The patient is currently seen on telemetry. She has apparently had better sugar control post-hypoglycemic episode. The patient is complaining of abdominal pain. She has a history of rachna roparesis. The patient is puffy in her face and states that there is not any way possible that she c an get through until 11/23/2016, without having an extra dialysis today. The patient will rec eive a short 2 hour dialysis today. I have discussed this with the dialysis staff. MEDICATIONS: Medication list reviewed. The patient is currently on aspirin, vitamin D, subQ heparin , Imdur, Keppra, Lipitor, Lopressor, Plavix, Procardia, Protonix, Reglan, Renagel, and Zofran. OBJECTIVE: VITAL SIGNS: Blood pressure 113/70, pulse 96, temperature 97.6, respiratory rate 20, oxygen saturati on 100%. HEENT: Shows her to be normocephalic, atraumatic. Conjunctivae are pink. Sclerae are nonicteric. NECK: Supple, no neck vein distention. CHEST: Clear to auscultation and percussion. CARDIOVASCULAR: Shows a regular S1, S2. No murmurs, rubs, or gallops. ABDOMEN: Soft. No distention. Mild tenderness diffusely on palpation. No rebound, no guarding. EXTREMITIES: Show trace edema of her lower extremity bilaterally. Right upper extremity AV fistula, positive thrill, positive bruit. No cyanosis, no clubbing. LABORATORY DATA AND IMAGING: Admitting chest x-ray from yesterday showed no acute pulmonary disease. White blood cell count today 7.0 with hemoglobin of 10.7, platelet count is 125,000. Chemistries t snow show normal electrolytes. BUN 27 with a creatinine of 2.7 and a glucose of 288. No further epi sodes of hypoglycemia. Albumin level was 3.5. ASSESSMENT: 1. Status post hypoglycemic episode. There is some question about whether patient has been giving h erself extra insulin which might be causing hypoglycemia. 2. End-stage renal disease. The patient is a Wednesday, Wednesday, Wednesday hemodialysis patient at [facility]. The patient appears to be puffy in her face. States that she would not be able to get through unti l Wednesday, 2 more days, without extra dialysis. I will dialyze her today 2 hours and ultrafiltrate 2 kilo. I have transmitted this information to the dialysis team. 3. Chronic abdominal pain with gastroparesis. The patient has become very dependent on narcotic annie lgesics. We will try and avoid using these medications during the hospitalization. 4. Insulin dependent diabetes mellitus. The patient once again cautioned not to use extra insulin w hich might be causing her hypoglycemia. 5. Hypertension, controlled. 6. Arteriosclerotic heart disease status post coronary artery bypass graft, currently stable. 7. Anemia secondary to chronic kidney disease, currently stable. Aranesp per protocol. 8. Chronic abdominal pain, possibly secondary to gastroparesis, currently stable. 9. Secondary hyperparathyroidism. Last phosphorus level 5.1. The patient will continue binder ther apy. She is on Renagel. PLAN: 1. Extra dialysis today with routine dialysis to follow on 11/23/2016. 2. Cautioned patient to avoid excessive fluid intake. 3. Try to avoid giving the patient any narcotic analgesics as she has become dependent on these over the years. 4. The patient may receive Benadryl with dialysis today. 5. Continue to monitor patient on telemetry. 6. Close renal followup during hospitalization. Theodore Rosas MD cc: [id number] TT: 11/21/2016 09:15:00 Confirmation # [id number] Dictation # [id number]
[2016-11-21] MEDS: Insulin Reg-LOW-Coverage SC SCH ×4 (10:30→18:23)
[2016-11-21] MEDS: NIFEdipine 90 mg ER Tab PO SCH (11:34)
--- NOTE | 2016-11-21 11:58 | CP.PCM.DIS ---
<TreverGibranantonio - Last Filed: 11/21/16 22:02> Provider - Provider Date of Admission: 11/20/16 05:45 Attending physician: Torsten Mckeon MD Primary care physician: Dr. Samuel Consults: ID: Dr. GARSIA Nephro: Dr. Villarreal Time Spent in preparation of Discharge (in minutes): 40 Diagnosis - Discharge Diagnosis (1) Factitious hypoglycemia Status: Resolved (2) Gastroparesis Status: Chronic (3) ESRD (end stage renal disease) Status: Chronic (4) HTN (hypertension) Status: Chronic (5) Diabetic neuropathy Status: Chronic (6) CAD (coronary artery disease) Status: Chronic (7) Anxiety Status: Chronic Hospital Course - Lab Results Lab Results: Most Recent Lab Values WBC 7.0 10^3/ul (4.5-11.0) D 11/21/16 07:59 RBC 3.64 10^6/uL (3.5-6.1) 11/21/16 07:59 Hgb 10.7 gm/dL (12.0-16.0) L 11/21/16 07:59 Hct 32.3 % (36.0-48.0) L 11/21/16 07:59 MCV 88.7 fL (80.0-105.0) 11/21/16 07:59 MCH 29.4 pg (25.0-35.0) 11/21/16 07:59 MCHC 33.1 g/dl (31.0-37.0) 11/21/16 07:59 RDW 17.2 % (11.5-14.5) H 11/21/16 07:59 Plt Count 125 10^3/uL (120.0-450.0) 11/21/16 07:59 MPV 11.7 fl (7.0-11.0) H 11/21/16 07:59 Gran % 63.3 % (50.0-68.0) 11/20/16 04:37 Lymph % (Auto) 18.1 % (22.0-35.0) L 11/20/16 04:37 Cass % (Auto) 12.2 % (1.0-6.0) H 11/20/16 04:37 Eos % (Auto) 5.6 % (1.5-5.0) H 11/20/16 04:37 Baso % (Auto) 0.8 % (0.0-3.0) 11/20/16 04:37 Gran # 5.69 (1.4-6.5) 11/20/16 04:37 Lymph # 1.6 (1.2-3.4) 11/20/16 04:37 Cass # 1.1 (0.1-0.6) H 11/20/16 04:37 Eos # 0.5 (0.0-0.7) 11/20/16 04:37 Baso # 0.07 K/mm3 (0.0-2.0) 11/20/16 04:37 PT 12.8 Seconds (9.9-11.8) H 11/20/16 04:37 INR 1.19 (0.93-1.08) H 11/20/16 04:37 APTT 30.3 Seconds (23.7-30.8) 11/20/16 04:37 pCO2 45 mm/Hg (35-45) 11/20/16 08:05 pO2 100.0 mm/Hg (80-100) 11/20/16 08:05 HCO3 27.2 mmol/L (21-28) 11/20/16 08:05 ABG pH 7.39 (7.35-7.45) 11/20/16 08:05 ABG Total CO2 28.6 mmol.L (22-28) H 11/20/16 08:05 ABG O2 Saturation 96.4 % (95-98) 11/20/16 08:05 ABG Base Excess 1.7 mmol/L (-2.0-3.0) 11/20/16 08:05 ABG Potassium 4.1 mmol/L (3.6-5.2) 11/20/16 08:05 Sodium 137.0 mmol/L (132-148) 11/20/16 08:05 Chloride 106.0 mmol/L (98-107) 11/20/16 08:05 Glucose 94 mg/dl (65-105) 11/20/16 08:05 Lactate 0.6 mmol/L (0.7-2.1) L 11/20/16 08:05 FiO2 28.0 % 11/20/16 08:05 Sodium 135 mmol/L (132-148) 11/21/16 07:59 Potassium 4.1 mmol/L (3.6-5.0) 11/21/16 07:59 Chloride 95 mmol/L (95-110) 11/21/16 07:59 Carbon Dioxide 27 mmol/L (21-33) 11/21/16 07:59 Anion Gap 17 (10-20) 11/21/16 07:59 BUN 27 mg/dL (7-21) H 11/21/16 07:59 Creatinine 2.7 mg/dL (0.5-1.4) H 11/21/16 07:59 Est GFR ( Amer) 25 11/21/16 07:59 Est GFR (Non-Af Amer) 20 11/21/16 07:59 POC Glucose (mg/dL) 149 mg/dL (65-110) H 11/20/16 23:32 Random Glucose 288 mg/dL (70-110) H 11/21/16 07:59 Hemoglobin A1c 7.4 % (4.2-6.5) H 11/20/16 05:00 Calcium 9.0 mg/dL (8.4-10.5) 11/21/16 07:59 Phosphorus 5.1 mg/dL (2.5-4.5) H 11/20/16 04:37 Magnesium 2.4 mg/dL (1.7-2.2) H 11/20/16 04:37 Total Bilirubin 1.3 mg/dL (0.2-1.3) 11/21/16 07:59 AST 34 U/L (15-39) 11/21/16 07:59 ALT 23 U/L (7-56) 11/21/16 07:59 Alkaline Phosphatase 348 U/L (38-133) H 11/21/16 07:59 Total Protein 6.8 g/dL (5.8-8.3) 11/21/16 07:59 Albumin 3.5 g/dL (3.0-4.8) 11/21/16 07:59 Globulin 3.3 gm/dL 11/21/16 07:59 Albumin/Globulin Ratio 1.0 (1.1-1.8) L 11/21/16 07:59 Amylase 145 U/L (35-125) H 11/20/16 07:00 Lipase 123 U/L (23-300) 11/20/16 07:00 Arterial Blood Potassium 4.1 mmol/L (3.6-5.2) 11/20/16 08:05 Hepatitis A IgM Ab Negative (NEGATIVE) 11/20/16 07:00 Hep Bs Antigen Negative (NEGATIVE) 11/20/16 07:00 Hep B Core IgM Ab Negative (NEGATIVE) 11/20/16 07:00 Hepatitis C Antibody Negative (NEGATIVE) 11/20/16 07:00 - Hospital Course Hospital Course: 31 year old female, with past medical history of hypertension, diabetes, ESRD on dialysis (M, W, F) at [facility], CABG with stents, and gastropariesis, was brought in by ambulance for hypoglycemia with blood glucose level of 29 mg/dl. Patient's daughter called the ambulance after patient became unconscious. En route, patient was given 1mg glucagon. Patient is alert, oriented X3 in the ed, answers in 1-2 words with short attention spans, but frequently dozing off with snores in the middle of conversations. Patient reports that she took her last insulin shot at 6 p.m. yesterday evening. Pt states that she only had a small meal last night with N/V for the past 3 days. She also complains of stomach pain but unable to provides more details due to somnolence. Patient cannot recall the name of the insulin (short vs mcc), and told me that she only take it once daily. Denies sickness recently. Denies recent change of medications or skipping doses. In the ED patient was given iain hugger for her hypothermia of 94F. CXR and CT head were unremarkable. Upon admission, nephrology and ID were consulted. Patient was started on vancomycin and cefepime. Held Losartan 100 mg daily and Clonidine 0.3 TID due to low BP. Abdominal pain controlled with tramadol. Patient was AAOx3 upon floor admission. Her lethargy improved progressively along with her appetite. Patient received an extra round HD on 11/21/16, vitals stabilized. The discharge plan and follow ups were extensively discussed with the patient who verbalized with complete understanding. At this time, after discussion of all issues, the patient was deemed medically fit for discharge. - Date & Time of H&P Date of H&P: 03/17/17 Time of H&P: 05:52 Discharge Exam - Head Exam Head Exam: ATRAUMATIC, NORMOCEPHALIC - Eye Exam Eye Exam: EOMI, Normal appearance - ENT Exam ENT Exam: Mucous Membranes Moist - Respiratory Exam Respiratory Exam: Clear to PA & Lateral, NORMAL BREATHING PATTERN. absent: Rhonchi, Wheezes, Respiratory Distress - Cardiovascular Exam Cardiovascular Exam: REGULAR RHYTHM, +S1, +S2. absent: Systolic Murmur - GI/Abdominal Exam GI & Abdominal Exam: Normal Bowel Sounds, Soft. absent: Rigid, Tenderness - Extremities Exam Extremities exam: normal capillary refill, pedal pulses present - Neurological Exam Neurological exam: Alert, Oriented x3 - Psychiatric Exam Psychiatric exam: Normal Affect, Normal Mood - Skin Skin Exam: Dry, Warm Discharge Plan - Follow Up Plan Condition: FAIR Disposition: HOME/ ROUTINE Instructions: Diabetic Hypoglycemia (DC) Additional Instructions: Patient will follow up PMD Dr. Samuel within 1 week of hospital discharge Will adhere correct medication schedule Consulted patient on medication abuse Go to the nearest ED if symptoms worsen or return. ANY CHEST PAIN OR SHORTNESS OF BREATH PLEASE CALL 911 RESUME ALL HOME MEDS PER MD INSTRUCTIONS Referrals: Elie Garsia MD [Staff Provider] - Nicola Villarreal MD [Staff Provider] - <Torsten Mckeon - Last Filed: 11/22/16 11:28> Provider - Provider Date of Admission: 11/20/16 05:45 Attending physician: Torsten Mckeon MD Hospital Course - Lab Results Lab Results: Most Recent Lab Values WBC 7.0 10^3/ul (4.5-11.0) D 11/21/16 07:59 RBC 3.64 10^6/uL (3.5-6.1) 11/21/16 07:59 Hgb 10.7 gm/dL (12.0-16.0) L 11/21/16 07:59 Hct 32.3 % (36.0-48.0) L 11/21/16 07:59 MCV 88.7 fL (80.0-105.0) 11/21/16 07:59 MCH 29.4 pg (25.0-35.0) 11/21/16 07:59 MCHC 33.1 g/dl (31.0-37.0) 11/21/16 07:59 RDW 17.2 % (11.5-14.5) H 11/21/16 07:59 Plt Count 125 10^3/uL (120.0-450.0) 11/21/16 07:59 MPV 11.7 fl (7.0-11.0) H 11/21/16 07:59 Gran % 63.3 % (50.0-68.0) 11/20/16 04:37 Lymph % (Auto) 18.1 % (22.0-35.0) L 11/20/16 04:37 Cass % (Auto) 12.2 % (1.0-6.0) H 11/20/16 04:37 Eos % (Auto) 5.6 % (1.5-5.0) H 11/20/16 04:37 Baso % (Auto) 0.8 % (0.0-3.0) 11/20/16 04:37 Gran # 5.69 (1.4-6.5) 11/20/16 04:37 Lymph # 1.6 (1.2-3.4) 11/20/16 04:37 Cass # 1.1 (0.1-0.6) H 11/20/16 04:37 Eos # 0.5 (0.0-0.7) 11/20/16 04:37 Baso # 0.07 K/mm3 (0.0-2.0) 11/20/16 04:37 PT 12.8 Seconds (9.9-11.8) H 11/20/16 04:37 INR 1.19 (0.93-1.08) H 11/20/16 04:37 APTT 30.3 Seconds (23.7-30.8) 11/20/16 04:37 pCO2 45 mm/Hg (35-45) 11/20/16 08:05 pO2 100.0 mm/Hg (80-100) 11/20/16 08:05 HCO3 27.2 mmol/L (21-28) 11/20/16 08:05 ABG pH 7.39 (7.35-7.45) 11/20/16 08:05 ABG Total CO2 28.6 mmol.L (22-28) H 11/20/16 08:05 ABG O2 Saturation 96.4 % (95-98) 11/20/16 08:05 ABG Base Excess 1.7 mmol/L (-2.0-3.0) 11/20/16 08:05 ABG Potassium 4.1 mmol/L (3.6-5.2) 11/20/16 08:05 Sodium 137.0 mmol/L (132-148) 11/20/16 08:05 Chloride 106.0 mmol/L (98-107) 11/20/16 08:05 Glucose 94 mg/dl (65-105) 11/20/16 08:05 Lactate 0.6 mmol/L (0.7-2.1) L 11/20/16 08:05 FiO2 28.0 % 11/20/16 08:05 Sodium 135 mmol/L (132-148) 11/21/16 07:59 Potassium 4.1 mmol/L (3.6-5.0) 11/21/16 07:59 Chloride 95 mmol/L (95-110) 11/21/16 07:59 Carbon Dioxide 27 mmol/L (21-33) 11/21/16 07:59 Anion Gap 17 (10-20) 11/21/16 07:59 BUN 27 mg/dL (7-21) H 11/21/16 07:59 Creatinine 2.7 mg/dL (0.5-1.4) H 11/21/16 07:59 Est GFR ( Amer) 25 11/21/16 07:59 Est GFR (Non-Af Amer) 20 11/21/16 07:59 POC Glucose (mg/dL) 399 mg/dL (65-110) H 11/21/16 11:36 Random Glucose 288 mg/dL (70-110) H 11/21/16 07:59 Hemoglobin A1c 7.4 % (4.2-6.5) H 11/20/16 05:00 Calcium 9.0 mg/dL (8.4-10.5) 11/21/16 07:59 Phosphorus 5.1 mg/dL (2.5-4.5) H 11/20/16 04:37 Magnesium 2.4 mg/dL (1.7-2.2) H 11/20/16 04:37 Total Bilirubin 1.3 mg/dL (0.2-1.3) 11/21/16 07:59 AST 34 U/L (15-39) 11/21/16 07:59 ALT 23 U/L (7-56) 11/21/16 07:59 Alkaline Phosphatase 348 U/L (38-133) H 11/21/16 07:59 Total Protein 6.8 g/dL (5.8-8.3) 11/21/16 07:59 Albumin 3.5 g/dL (3.0-4.8) 11/21/16 07:59 Globulin 3.3 gm/dL 11/21/16 07:59 Albumin/Globulin Ratio 1.0 (1.1-1.8) L 11/21/16 07:59 Amylase 145 U/L (35-125) H 11/20/16 07:00 Lipase 123 U/L (23-300) 11/20/16 07:00 Arterial Blood Potassium 4.1 mmol/L (3.6-5.2) 11/20/16 08:05 Hepatitis A IgM Ab Negative (NEGATIVE) 11/20/16 07:00 Hep Bs Antigen Negative (NEGATIVE) 11/20/16 07:00 Hep B Core IgM Ab Negative (NEGATIVE) 11/20/16 07:00 Hepatitis C Antibody Negative (NEGATIVE) 11/20/16 07:00 Attending/Attestation - Attestation I have personally seen and examined this patient.: Yes I have fully participated in the care of the patient.: Yes I have reviewed all pertinent clinical information, including history, physical exam and plan: Yes Notes (Text): 11/21/16 31 year old female with past medical history of ESRD on HD, diabetes, hypertension, CAD s/p CABG and stents, and gastroparesis who presented with altered mental status secondary to hypoglycemia. She was found to have SIRS with hypothermia and tachycardia. She received cefepime and vano.CT head was negative. Her levemir was held and her fingersticks were closely monitored. Her mental improved to baseline as did her fingersticks. Repeat cultures were negative and she is cleared to go by ID off antibiotics. She received dialysis yesterday and again today which she terminated short because she wanted to go home. She is ambulating and not short of breath. She is on tramadol for history of chronic opiate dependence. She was requesting dilaudid which she stated she took at home. However I called her pharmacy who verified she is on tramadol and was in fact recently prescribed tramadol three days prior. She is tolerating meals with vomiting today. Patient is discharged home today to follow up with her pmd. Follow up with nephrology for dialysis. Counselled on risks of narcotic abuse. Follow up with scrap bunch maker. Counselled on monitoring her fingersticks closely at home. Torsten Mckeon MD Hospitalist.
[2016-11-21 13:19] VITALS: BP 159/99; TEMP 99
--- NOTE | 2016-11-21 15:46 | CP.PCM.PN ---
Subjective - Date & Time of Evaluation Date of Evaluation: 11/21/16 Time of Evaluation: 13:30 - Subjective Subjective: Infectious Disease Follow Up: November 21, 2016 31 yo female with multiple medical issues including chronic end stage organ damage such as ESRD on HD. Patient with known non-compliance with medications and frequent hospitalizations to multiple facility such as [facility], [facility], and [facility]. Patient presents this time for hypoglycemia and hypothermia. Blood glucose was as low as 29 in the field. She apparently lost consciousness at home. She was released from [facility] a few days ago. Patient was tachycardic as well. The patient is currently at HD. Patient is frequently in the hospital. Over the past 24 hours, the patient has improved. Cultures negative at 24 hours. Objective - Vital Signs/Intake and Output Vital Signs (last 24 hours): Temp Pulse Resp BP Pulse Ox 99.0 F 95 H 20 159/99 H 100 11/21/16 12:00 11/21/16 12:00 11/21/16 12:00 11/21/16 12:00 11/21/16 06:00 Intake and Output: 11/21/16 11/21/16 06:59 18:59 Intake Total 240 Balance 240 - Medications Medications: Current Medications Aspirin (Aspirin Chewable) 81 mg PO DAILY [facility] Last Admin: 11/21/16 09:54 Dose: 81 mg Atorvastatin Calcium (Lipitor) 40 mg PO HS [facility] Last Admin: 11/20/16 22:11 Dose: 40 mg Clopidogrel Bisulfate (Plavix) 75 mg PO DAILY [facility] Last Admin: 11/21/16 09:51 Dose: 75 mg Ergocalciferol (Drisdol 50,000 Intl Units Cap) 1 cap PO Q30D [facility] Last Admin: 11/20/16 10:26 Dose: 1 cap Heparin Sodium (Porcine) (Heparin) 5,000 units SC Q8 [facility] PRN Reason: Protocol Last Admin: 11/21/16 14:49 Dose: Not Given Insulin Human Regular (Humulin R Low) 0 units SC ACHS [facility] PRN Reason: Protocol Last Admin: 11/21/16 11:42 Dose: 5 units Isosorbide Mononitrate (Imdur) 120 mg PO DAILY [facility] Last Admin: 11/21/16 11:33 Dose: 120 mg Levetiracetam (Keppra) 500 mg PO DAILY [facility] Last Admin: 11/21/16 09:52 Dose: 500 mg Metoclopramide HCl (Reglan) 5 mg PO DAILY [facility] Last Admin: 11/21/16 09:52 Dose: 5 mg Metoprolol Tartrate (Lopressor) 50 mg PO BID [facility] Last Admin: 11/21/16 09:51 Dose: 50 mg Nifedipine (Procardia Xl) 90 mg PO DAILY [facility] Ondansetron HCl (Zofran Inj) 2 mg IVP Q4 PRN PRN Reason: Nausea/Vomiting Pantoprazole Sodium (Protonix Inj) 40 mg IVP DAILY [facility] Last Admin: 11/21/16 09:54 Dose: 40 mg Sevelamer HCl (Renagel) 800 mg PO TID [facility] Last Admin: 11/21/16 14:50 Dose: 800 mg Tramadol HCl (Ultram) 50 mg PO TID PRN PRN Reason: Pain, severe (8-10) Last Admin: 11/21/16 11:35 Dose: 50 mg - Labs Labs: 11/21/16 07:59 11/21/16 07:59 PT 12.8 Seconds (9.9-11.8) H 11/20/16 04:37 INR 1.19 (0.93-1.08) H 11/20/16 04:37 APTT 30.3 Seconds (23.7-30.8) 11/20/16 04:37 - Constitutional Appears: Non-toxic, No Acute Distress, Chronically Ill - Head Exam Head Exam: ATRAUMATIC, NORMOCEPHALIC - Eye Exam Eye Exam: EOMI, PERRL Pupil Exam: NORMAL ACCOMODATION, PERRL - ENT Exam ENT Exam: Mucous Membranes Moist, Normal External Ear Exam, TM's Normal Bilaterally - Neck Exam Neck Exam: Full ROM, Normal Inspection - Respiratory Exam Respiratory Exam: Clear to Ausculation Bilateral, NORMAL BREATHING PATTERN. absent: Rales, Rhonchi, Wheezes - Cardiovascular Exam Cardiovascular Exam: REGULAR RHYTHM, RRR, +S1, +S2 - GI/Abdominal Exam GI & Abdominal Exam: Soft, Normal Bowel Sounds. absent: Distended, Tenderness - Extremities Exam Extremities Exam: Full ROM Additional comments: pedal edema (1+ pitting b/l LLE. Red healed arterial ulcer R anterior leg. thin long skin effacement on R rowell. L ankle swollen with no increased warm or pain) , pedal pulses present - Neurological Exam Neurological Exam: Alert, Awake, CN II-XII Intact, Oriented x3 - Psychiatric Exam Psychiatric exam: Normal Affect, Normal Mood - Skin Skin Exam: Intact, Normal Color Assessment and Plan - Assessment and Plan (Free Text) Assessment: 31 yo female patient with extensive past medical history and multiple hospitalizations presenting with hypoglycemia, tachycardia, and hypothermia. Recently discharge from [facility] within the past 3 days. Question of sepsis versus overdosing on her regular medications. Quintanilla cultures taken. On Cefepime and 1 dose of Vancomycin. Will review records at [facility]. Supportive care. Multiple chronic and end stage medical issues. Cultures negative at 24 hours. Question of insulin overdose. Supportive care. Thank you for allowing me to participate in the care of the patient, we will follow with you.
[2016-11-21 17:18] VITALS: PULSE 80
[2016-11-22] MEDS ORDERED: NIFEdipine 30 mg ER Tab PO SCH (10:00)
== END 2016-11-21 18:44 | disposition home or self-care (01) ==
LOC: ED 04:20 → ERH 05:45 → 2RNO 09:04
PROVIDERS: ADMIT Hospitalist; ATTEND Internal Medicine
DX: E10.649 Type 1 diabetes mellitus with hypoglycemia without coma (principal); I12.0 Hypertensive chronic kidney disease with stage 5 chronic kidney disease or end stage renal disease; N18.6 End stage renal disease; Z95.1 Presence of aortocoronary bypass graft; Z95.5 Presence of coronary angioplasty implant and graft; Z91.14 Patient's other noncompliance with medication regimen; Z90.49 Acquired absence of other specified parts of digestive tract; Z87.891 Personal history of nicotine dependence; Z99.2 Dependence on renal dialysis; N25.81 Secondary hyperparathyroidism of renal origin; K92.0 Hematemesis; E87.5 Hyperkalemia; D63.1 Anemia in chronic kidney disease; E87.1 Hypo-osmolality and hyponatremia; E87.3 Alkalosis; F41.9 Anxiety disorder, unspecified; G89.29 Other chronic pain; K31.84 Gastroparesis; E10.43 Type 1 diabetes mellitus with diabetic autonomic (poly)neuropathy; I25.10 Atherosclerotic heart disease of native coronary artery without angina pectoris; E10.10 Type 1 diabetes mellitus with ketoacidosis without coma; E10.22 Type 1 diabetes mellitus with diabetic chronic kidney disease; I45.2 Bifascicular block; I50.9 Heart failure, unspecified; K21.9 Gastro-esophageal reflux disease without esophagitis; R65.10 Systemic inflammatory response syndrome (SIRS) of non-infectious origin without acute organ dysfunction; Z79.02 Long term (current) use of antithrombotics/antiplatelets; Z79.4 Long term (current) use of insulin; Z79.899 Other long term (current) drug therapy; R11.2 Nausea with vomiting, unspecified; Z88.6 Allergy status to analgesic agent; Z88.5 Allergy status to narcotic agent
CPT/HCPCS: 36415; 70450; 71010; 80053; 80074; 82150; 82803; 82948; 83036; 83690; 83735; 84100; 85025; 85027; 85610; 85730; 87040; 93005; 96365; 96372; 96375; 99285; C9113; G0378; J0692; J1644; J2405; J7042

== ENCOUNTER 2017-01-15 11:57 | Inpatient (IN) | payer MEDICARE, MEDICAID ==
[2017-01-15 12:00] VITALS: BMI 29.2
[2017-01-15] MEDS ORDERED: Dextrose 50% SYRINGE Inj (50 ml) ONE (12:02)
[2017-01-15] MEDS ORDERED: Dextrose 50% SYRINGE Inj (50 ml) IVP STA ×2 (12:12→14:23)
[2017-01-15 12:24] LABS: ADD MANUAL DIFF? NO
[2017-01-15 12:28] VITALS: TEMP 98.2
[2017-01-15 12:29] LABS: BASO # 0.05 K/mm3 (0.0-2.0); BASO % 0.8 % (0.0-3.0); EOS # 0.3 (0.0-0.7); EOS % 5.3 % (1.5-5.0); GRAN # 3.71 (1.4-6.5); GRAN % 57.5 % (50.0-68.0); LYMPH # 1.3 (1.2-3.4); LYMPH % 19.7 % (22.0-35.0); MEAN CELL VOLUME 88.2 fL (80.0-105.0); MEAN CORPUSCULAR HEMOGLOBIN 30.2 pg (25.0-35.0); MEAN CORPUSCULAR HGB CONC 34.3 g/dl (31.0-37.0); MONO # 1.1 (0.1-0.6); MONO % 16.7 % (1.0-6.0); PLATELET COUNT 212 10^3/uL (120.0-450.0); RED CELL DISTRIBUTION WIDTH 17.2 % (11.5-14.5); WHITE BLOOD COUNT 6.5 10^3/ul (4.5-11.0)
[2017-01-15 12:47] LABS: INR 1.19 (0.93-1.08); PARTIAL THROMBOPLASTIN TIME 27.7 Seconds (23.7-30.8)
--- NOTE | 2017-01-15 13:05 | RAD ---
HISTORY: AMS COMPARISON: 11/20/2016 FINDINGS: LUNGS: No active pulmonary disease. PLEURA: No significant pleural effusion identified, no pneumothorax apparent. CARDIOVASCULAR: Normal heart size. Mediastinal and left hilar surgical clips sternotomy wires. Right central venous infusion port. Right upper extremity vascular stent. OSSEOUS STRUCTURES: No significant abnormalities. VISUALIZED UPPER ABDOMEN: Normal. OTHER FINDINGS: None. IMPRESSION: No active disease.
[2017-01-15 13:12] LABS: ALB/GLOB RATIO 1.1 (1.1-1.8); BILIRUBIN,TOTAL 1.7 mg/dL (0.2-1.3); CALCIUM 9.4 mg/dL (8.4-10.5); POTASSIUM 3.1 mmol/L (3.6-5.0); TOTAL PROTEIN 7.8 g/dL (5.8-8.3)
[2017-01-15] MEDS ORDERED: HYDROmorphone 1 mg/ml ISec IVP STA (13:27)
[2017-01-15] MEDS ORDERED: DiphenhydrAMINE 50 mg/ml Inj IVP STA (13:28)
[2017-01-15 14:01] LABS: TROPONIN I 0.16 ng/mL
--- NOTE | 2017-01-15 14:10 | ED PDOC ---
Arrival/HPI - General Chief Complaint: Altered Mental Status Time Seen by Provider: 01/15/17 12:12 Historian: Patient - History of Present Illness Narrative History of Present Illness (Text): 01/15/17 12:12 A 31 year old female was brought into the emergency department from the dialysis center for hypoglycemia. As per EMS, patient was fully dialyzed for 4 hours. Patient was seen upon arrival and received an amp of D50 in the emergency room, which resolved her symptoms. Patient notes feeling anxious but denies any fever, chills, nausea, vomiting, diarrhea, abdominal pain, chest pain , shortness of breath or any other complaints. Time/Duration: Prior to Arrival Symptom Course: Unchanged Quality: Other Context: Other Past Medical History - Provider Review Nursing Documentation Reviewed: Yes - Infectious Disease Hx of Infectious Diseases: None - Tetanus Immunization Tetanus Immunization: Unknown - Cardiac Hx Cardiac Disorders: Yes (CABG WITH 6 HEART STENTS) Hx Hypertension: Yes Hx Peripheral Edema: Yes (+2 edema to lower left leg ankle and foot) - Pulmonary Hx Respiratory Disorders: Yes (PULMONARY EDEMA) Hx Pneumonia: No - Neurological Hx Neurological Disorder: Yes (NEUROPATHY) - HEENT Hx HEENT Disorder: Yes (eyeglasses) - Renal Hx Renal Disorder: Yes (anuria) Hx Dialysis: Yes ([facility]) Date of Last Dialysis Treatment: 01/15/17 - Endocrine/Metabolic Hx Endocrine Disorders: Yes (UNCONTROLLED DM) Hx Diabetes Mellitus Type 1: Yes - Hematological/Oncological Hx Blood Disorders: No Hx Anemia: No - Integumentary Other/Comment: lle dark colored scarring from lle sx, dry discolored skin to ankle and foot, with +2 edema to lle ankle and foot pitting, multiple tatoos, small red foot ulcer to bottom of left foot >5cm x 1cm, multiple dry skin areas and discolorations ble - Musculoskeletal/Rheumatological Hx Musculoskeletal Disorders: Yes Hx Falls: Yes Hx Fractures: Yes (FX LEG AND /FOOT LEFT,HARDWARE REMOVED MARCH 2016) - Gastrointestinal Hx Gastrointestinal Disorders: Yes (GI BLEED,GASTROPARESIS,APPENDECTOMY,) Hx Gall Bladder Disease: Yes (CHOLECYSTITIS) Hx Gastroesophageal Reflux: Yes Hx Pancreatitis: Yes - Genitourinary/Gynecological Hx Genitourinary Disorders: Yes (pt does not void-ANURIC) Other/Comment: lmp 4 yrs ago - Psychiatric Hx Psychophysiologic Disorder: Yes Hx Anxiety: Yes Hx Depression: Yes Hx Substance Use: No - Surgical History Hx Appendectomy: Yes Hx Cardiac Catheterization: Yes Hx Coronary Stent: Yes (x6) Other/Comment: pt has old valarie shunt not in use and right arm fistula that is used for dialysis, c section, pt tripped and fx left leg and left ft had sx 2014 had hardware removed march 2016, pt denies fall, just tripped, r cw pac - Anesthesia Hx Anesthesia: Yes Hx Anesthesia Reactions: No Hx Malignant Hyperthermia: No - Suicidal Assessment Feels Threatened In Home Enviroment: No Family/Social History - Physician Review Nursing Documentation Reviewed: Yes Family/Social History: No Known Family HX Smoking Status: Current Some Days Smoker Hx Alcohol Use: No Hx Substance Use: No Hx Substance Use Treatment: No Allergies/Home Meds Allergies/Adverse Reactions: Allergies acetaminophen [From Percocet] Adverse Reaction (Verified 01/15/17 17:01) RASH codeine Adverse Reaction (Verified 01/15/17 17:01) RASH morphine Adverse Reaction (Verified 01/15/17 17:01) RASH oxycodone HCl [From Percocet] Adverse Reaction (Verified 01/15/17 17:01) RASH flu shot Adverse Reaction (Uncoded 01/15/17 17:01) SHORTNESS OF BREATH Home Medications: Home Meds Medication Instructions Recorded Confirmed Aspirin [Aspirin Chewable] 81 mg PO DAILY 01/15/17 01/15/17 Atorvastatin [Lipitor] 40 mg PO DAILY 01/15/17 01/15/17 Clopidogrel [Plavix] 75 mg PO DAILY 01/15/17 01/15/17 Enoxaparin [Lovenox] 55 mg SQ DAILY 01/15/17 01/15/17 Famotidine [Pepcid] 10 mg PO DAILY 01/15/17 01/15/17 Insulin Aspart, Recombinant 3 units SC ACTID 01/15/17 01/15/17 [Novolog] Insulin Glargine,Hum.rec.anlog 7 unit SQ DAILY 01/15/17 01/15/17 [Lantus] Levetiracetam [Keppra] 750 mg PO DAILY 01/15/17 01/15/17 Metoclopramide [Reglan] 10 mg PO DAILY 01/15/17 01/15/17 Metoprolol Smith/Hydrochlorothiaz 1 each PO DAILY 01/15/17 01/15/17 [Metoprolol ER-Hctz 50-12.5 mg] Oxycodone HCl [Roxicodone] 30 mg PO PRN PRN 01/15/17 01/15/17 Pantoprazole [Protonix] 40 mg PO DAILY 01/15/17 01/15/17 Sevelamer Carbonate [Renvela] 800 mg PO DAILY 01/15/17 01/15/17 Zolpidem Tartrate [Ambien] 10 mg PO PRN PRN 01/15/17 01/15/17 amLODIPine [Norvasc] 10 mg PO DAILY 01/15/17 01/15/17 cloNIDine [Catapres] 0.3 mg PO DAILY 01/15/17 01/15/17 Physical Exam - Physical Exam Narrative Physical Exam (Text): - Review of Systems Constitutional: (+) Hypoglycemia absent: Fatigue, Weight Change, Fevers Eyes: Normal ENT: Normal Respiratory: Normal absent: SOB, Cough, Sputum Cardiovascular: Normal absent: Chest pain, Palpitations, Syncope Gastrointestinal: Normal absent: Abdominal pain, Diarrhea, Nausea, Vomiting Genitourinary: Normal. absent: Dysuria, Frequency, Hematuria Musculoskeletal: Normal. absent: Arthralgias, Back Pain, Neck Pain Skin: Normal Neurological: Normal absent: Focal Weakness Endocrine: Normal Hemo/Lymphatic: Normal Psychiatric: Normal - Physical exam Patient appears age appropriate, speaking full sentences without difficulty - Systems Exam Head: Present: Atraumatic, Face appears edematous Pupils: Present: PERRL Extraocular Muscles: Present: EOMI Conjunctiva: Present: Normal Mouth: Present: Moist Mucous Membranes Neck: Present: Normal Range of Motion. No: MIDLINE TENDERNESS, Paraspinal Tenderness Respiratory/Chest: Present: Clear to Auscultation, Good Air Exchange. No: Respiratory Distress, Accessory Muscle Use, Tachypnic Cardiovascular: Present: Regular Rate and Rhythm, Normal S1, S2, Peripheral Pulses Present. No: Murmurs Abdomen: Present: Normal Bowel Sounds, No: Tenderness, Peritoneal Signs, Rebound, Guarding, Distention Back: Present: Normal Inspection. No: Midline Tenderness, Paraspinal Tenderness Upper Extremity: Present: Normal Inspection, Fistula in left upper extremity with positive bruit, thrill and pulse No: Cyanosis, Edema Lower Extremity: Present: Normal Inspection. No: Edema Neurological: Present: GCS=15, Speech Normal, cranial nerves II through XII fully intact with no cerebellar abnormality, neuro-sensory fully intact. No focal neurological deficits. Skin: Present: Warm, Dry, Normal Color. No: Rashes Lymphatic: Present: OX3, NI, NC Psychiatric: Present: Alert, Oriented x 3, Normal Insight, Normal Concentration Vital Signs Reviewed: Yes Vital Signs Temp Pulse Resp BP Pulse Ox 01/15/17 15:52 159/94 H 01/15/17 15:51 108 H 159/94 H 01/15/17 15:18 110 H 18 173/108 H 98 01/15/17 15:05 111 H 18 164/108 H 100 01/15/17 13:05 124 H 18 184/105 H 100 01/15/17 12:13 98.2 F 121 H 20 193/116 H 100 Temperature: Afebrile Blood Pressure: Hypertensive Pulse: Tachycardic Respiratory Rate: Normal Appearance: Positive for: Well-Appearing, Non-Toxic, Comfortable Pain Distress: None Mental Status: Positive for: Alert and Oriented X 3 Medical Decision Making ED Course and Treatment: 01/15/17 12:12 Impression: A 31 year old female with hypoglycemia Plan: -- Chest xray -- EKG -- Labs -- Ativan, Benadryl, Dextrose 50 -- Reassess and disposition Progress Notes: EKG shows sinus tachycardia at [address]-segment elevations, normal intervals. Interpreted by me. Report Date : 01/15/2017 13:03:44 Procedure: Chest xray Dictator : Lupillo Marsh MD IMPRESSION: No active disease. 01/15/17 14:[address] Lubin, [employer], who is aware of and agrees with plan for admission. She states she will dialyze patient tomorrow. 01/15/17 14:15 Patient developed hypoglycemia again despite eating. D50 drip ordered. 01/15/17 14:29 Case discussed in detail with Dr. Mckeon, who accepts patient under his service for hypoglycemia. Pt aware of and agrees with plan - Critical Care Critical Care Minutes: 30 minutes - Lab Interpretations Lab Results: 01/15/17 12:22 01/15/17 12:22 Lab Results 01/15/17 14:01: POC Glucose (mg/dL) 31 L* 01/15/17 12:22: Sodium 141, Potassium 3.1 L, Chloride 99, Carbon Dioxide 32, Anion Gap 13, BUN 15, Creatinine 2.0 H, Est GFR ( Amer) 35, Est GFR (Non- Af Amer) 29, Random Glucose 66 L, Calcium 9.4, Total Bilirubin 1.7 H, AST 82 H, ALT 53, Alkaline Phosphatase 427 H, Lactate Dehydrogenase 721 H, Total Creatine Kinase 267 H, CK-MB (CK-2) 3.4, CK-MB (CK-2) % Cancelled, Troponin I 0.16 H* D, Total Protein 7.8, Albumin 4.1, Globulin 3.7, Albumin/Globulin Ratio 1.1 01/15/17 12:22: WBC 6.5, RBC 3.97, Hgb 12.0, Hct 35.0 L, MCV 88.2, MCH 30.2, MCHC 34.3, RDW 17.2 H, Plt Count 212, Gran % 57.5, Lymph % (Auto) 19.7 L, Foard % (Auto) 16.7 H, Eos % (Auto) 5.3 H, Baso % (Auto) 0.8, Gran # 3.71, Lymph # 1.3 , Foard # 1.1 H, Eos # 0.3, Baso # 0.05 01/15/17 12:15: PT 12.8 H, INR 1.19 H, APTT 27.7 - RAD Interpretation Radiology Orders: 01/15/17 12:12 CHEST PORTABLE [RAD] Stat - Medication Orders Current Medication Orders: Discontinued Medications Amlodipine Besylate (Norvasc) 10 mg PO DAILY [facility] Last Admin: 01/15/17 15:52 Dose: 10 mg Aspirin (Aspirin Chewable) 81 mg PO DAILY [facility] Atorvastatin Calcium (Lipitor) 40 mg PO DAILY [facility] Clonidine HCl (Catapres) 0.3 mg PO DAILY [facility] Clopidogrel Bisulfate (Plavix) 75 mg PO DAILY [facility] Dextrose (Dextrose 50% Inj) Confirm Administered Dose 50 ml .ROUTE .STK-MED ONE Stop: 01/15/17 12:03 Last Admin: 01/15/17 12:05 Dose: 50 ml Dextrose (Dextrose 50% Inj) 100 ml IVP STAT STA Stop: 01/15/17 12:13 Last Admin: 01/15/17 14:19 Dose: Dextrose (Dextrose 50% Inj) 50 ml IVP STAT STA Stop: 01/15/17 14:24 Last Admin: 01/15/17 14:25 Dose: 50 ml Diphenhydramine HCl (Benadryl) 50 mg IVP STAT STA Stop: 01/15/17 13:29 Last Admin: 01/15/17 13:37 Dose: 50 mg Famotidine (Pepcid) 10 mg PO DAILY [facility] Hydrochlorothiazide (Microzide) 12.5 mg PO DAILY [facility] Hydromorphone HCl (Dilaudid) 1 mg IVP STAT STA Stop: 01/15/17 13:28 Last Admin: 01/15/17 13:36 Dose: 1 mg Re-Assess: KERON Pain Assessment Document 01/15/17 14:36 SRE (Rec: 01/15/17 16:32 SRE [id number]) Pain Reassessment Is this a pain reassessment? Yes Sleep Is patient sleeping during reassessment? No Presence of Pain Presence of Pain Yes Pain Scale Used Pain Scale Used Numeric Dextrose/Sodium Chloride (Dextrose 5%/0.9% Ns 1000 Ml) 1,000 mls @ 100 mls/hr IV .Q10H [facility] Last Admin: 01/15/17 14:21 Dose: 100 mls/hr Lorazepam (Ativan) 2 mg IVP ONCE ONE Stop: 01/15/17 12:47 Last Admin: 01/15/17 16:31 Dose: Losartan Potassium (Cozaar) 50 mg PO STAT STA Stop: 01/15/17 14:33 Last Admin: 01/15/17 15:51 Dose: 50 mg Metoclopramide HCl (Reglan) 10 mg PO DAILY [facility] Metoprolol Succinate (Toprol Xl) 50 mg PO BRK [facility] Oxycodone HCl (Oxycodone Immediate Release Tab) 5 mg PO DAILY [facility] Pneumococcal Polyvalent Vaccine (Pneumovax 23 Vaccine) 0.5 ml IM .ONCE ONE Stop: 01/15/17 19:32 - Scribe Statement The provider has reviewed the documentation as recorded by the Scribe Iram Garcia Provider Scribe Attestation: All medical record entries made by the Scribe were at my direction and personally dictated by me. I have reviewed the chart and agree that the record accurately reflects my personal performance of the history, physical exam, medical decision making, and the department course for this patient. I have also personally directed, reviewed, and agree with the discharge instructions and disposition. Disposition/Present on Arrival - Present on Arrival Any Indicators Present on Arrival: No History of DVT/PE: No History of Uncontrolled Diabetes: Yes Urinary Catheter: No History of Decub. Ulcer: No History Surgical Site Infection Following: None - Disposition Have Diagnosis and Disposition been Completed?: Yes Diagnosis: Hypoglycemia Disposition: HOSPITALIZED Disposition Time: 14:29 Patient Plan: Admission Condition: GOOD
[2017-01-15] MEDS ORDERED: Dextrose 5%/0.9% NS 1,000 ML IV SCH (14:15)
--- NOTE | 2017-01-15 15:02 | CON ---
DATE: 01/15/2017 SUBJECTIVE: The patient is seen in the Emergency Room. Consultation is requested for altered mental status, hypoglycemia. HISTORY OF PRESENTING ILLNESS: A 31-year-old young woman known to me from outpatient hemodialysis. She was sent to the Emergency Room from the dialysis unit because she was found to be hypoglycemic, u nresponsive. She received 2 grams of IV D50 in the outpatient unit. The patient was sent to get to the hospital via ambulance. In the Emergency Room, she was found to be unresponsive. She was given Narcan. She woke up. She was also given D50. She is seen in the Emergency Room currently moaning a nd groaning and complaining of severe pain in her left knee, left hip. She was found to have low blood pressure 193/116, pulse rate of 121, respiratory rate of 20. Her pot assium is found to be 3.1; this is postdialysis. Glucose is 66. Chest x-ray shows no active disease . PAST MEDICAL AND SURGICAL HISTORY: NIDDM, hypertension, ESRD, CABG, stents, gastroparesis, multiple episodes of hypoglycemia, chronic pain, narcotic dependence, anxiety, AV fistula, fracture of left le g, appendectomy. FAMILY HISTORY: Noncontributory. SOCIAL HISTORY: No smoking, no alcohol use, no IV drug abuse. ALLERGIES: TYLENOL, PERCOCET, CODEINE, MORPHINE, OXYCODONE. MEDICATIONS: Renvela, Reglan, insulin, Protonix, Pepcid, metoprolol, hydrochlorothiazide, Lovenox, L evemir, insulin, Keppra, hydromorphone, gabapentin, Dilaudid, fentanyl, clonidine, amlodipine, Plavix , Lipitor, Ativan, aspirin, Ambien. REVIEW OF SYSTEMS: All systems are reviewed. Pertinent positives as mentioned in history of present ing illness, rest unremarkable. PHYSICAL EXAMINATION: GENERAL: Young woman lying in bed in the Emergency Room in moderate distress. VITAL SIGNS: Blood pressure 198/110, heart rate 100, respiratory rate 18, temperature 98. HEENT: Normocephalic, atraumatic, periorbital edema, closed eyes, puffy face. NECK: Supple, no JVD. LUNGS: Bilateral equal air entry, no rales. CARDIAC: S1, S2, regular rate and rhythm, no murmur, no rub. ABDOMEN: Soft, nondistended, nontender, bowel sounds present. EXTREMITIES: Deformity of the left ankle, scars on the left knee, 2+ pitting edema. LABORATORY DATA: Sodium 141, potassium 3.1, chloride 99, CO2 32, BUN 15, creatinine 2.0, glucose 66, calcium 9.4. AST 82, ALT 53, albumin 4.1. WBC 6.5, hemoglobin 12, hematocrit 35, platelets 212. ASSESSMENT AND PLAN: 1. Hypoglycemia. 2. Chronic pain. 3. Brittle diabetes. 4. Severe hypertension. 5. End-stage renal disease. 6. Hypokalemia, postdialysis. PLAN: 1. Monitor fingersticks. 2. No indication to replace potassium. 3. Ultrafiltration again tomorrow. 4. Restart antihypertensives. Olena Lubin MD cc: [phone] TT: 01/15/2017 15:01:51 Confirmation # [id number] Dictation # [id number] mn
[2017-01-15 15:18] VITALS: RESP 18
[2017-01-15 15:19] VITALS: O2SAT 98
[2017-01-15 15:52] VITALS: BP 159/94
[2017-01-15] MEDS ORDERED: Potassium Chloride 20 mEq ER Tab PO STA (16:36)
--- NOTE | 2017-01-15 17:27 | CP.PCM.HP ---
<Mark Eng - Last Filed: 01/15/17 17:55> History of Present Illness - History of Present Illness History of Present Illness: 31F w/ PMHx of HTN, DM-1, ESRD, anemia, anxiety, and gastroparesis presents to the ED after being transferred from dialysis center via ambulance. Patient became hypoglycemic, she was given two amps of D50 (glucose level 31) . Upon arrival to ED patient was given D50 and Narcan was admnistered. At time of examination, patient was a bit sluggish, but was alert and awake, and capable of answering questions. Patient's glucose fingerstick reading was 67 at time of examination, and Dextrose5%NS was being started at 100mls/hr. Patient denies headaches, chest pain, shortness of breath, abdominal pain. Patient complained of left knee and left hip pain as well as generalized pruritus. Patient also reported falling from bed during her sleep and landing on her face. She complains of tenderness along nose and orbits. PMH DM type 1 w/ neuropathy CAD s/p multiple stents, CABG HTN ESR on HD (MWF), anuric, Anemia anxiety, gastroparesis OBGYN LMP 4 years ago x1 PSH CABG, Cardiac catherterization with 6 stents AV fistulas x 2 (Old valarie shunt not in use; Right arm fistula that is used for dialysis) B/L benign breast mass removal, peritoneal dialysis catheter c section Surgery on left leg (pt tripped and fx left leg and left ft had sx 12/2014 had hardware removed march 2016) Appendectomy SH Denies smoking, Etoh, illicit drug use All Acetaminophen Percocet codeine morphine oxycodone flu shot Adverse Reaction - SHORTNESS OF BREATH Present on Admission - Present on Admission Any Indicators Present on Admission: Yes History of Uncontrolled Diabetes: Yes Review of Systems - Review of Systems Review of Systems: 12pt ROS reviewed, unremarkable, except as stated in HPI Past Patient History - Infectious Disease Hx of Infectious Diseases: None - Tetanus Immunizations Tetanus Immunization: Unknown - Past Medical History & Family History Past Medical History?: Yes - Past Social History Smoking Status: Current Some Days Smoker - CARDIAC Hx Cardiac Disorders: Yes (CABG WITH 6 HEART STENTS) Hx Hypertension: Yes Hx Peripheral Edema: Yes (+2 edema to lower left leg ankle and foot) - PULMONARY Hx Respiratory Disorders: Yes (PULMONARY EDEMA) Hx Pneumonia: No - NEUROLOGICAL Hx Neurological Disorder: Yes (NEUROPATHY) - HEENT Hx HEENT Problems: Yes (eyeglasses) - RENAL Hx Chronic Kidney Disease: Yes (anuria) Hx Dialysis: Yes ([facility]) Date of Last Dialysis Treatment: 01/15/17 - ENDOCRINE/METABOLIC Hx Endocrine Disorders: Yes (UNCONTROLLED DM) Hx Diabetes Mellitus Type 1: Yes - HEMATOLOGICAL/ONCOLOGICAL Hx Blood Disorders: No Hx Anemia: No - INTEGUMENTARY Other/Comment: lle dark colored scarring from lle sx, dry discolored skin to ankle and foot, with +2 edema to lle ankle and foot pitting, multiple tatoos, small red foot ulcer to bottom of left foot >5cm x 1cm, multiple dry skin areas and discolorations ble - MUSCULOSKELETAL/RHEUMATOLOGICAL Hx Musculoskeletal Disorders: Yes Hx Falls: Yes Hx Fractures: Yes (FX LEG AND /FOOT LEFT,HARDWARE REMOVED MARCH 2016) - GASTROINTESTINAL Hx Gastrointestinal Disorders: Yes (GI BLEED,GASTROPARESIS,APPENDECTOMY,) Hx Gall Bladder Disease: Yes (CHOLECYSTITIS) Hx Gastroesophageal Reflux: Yes Hx Pancreatitis: Yes - GENITOURINARY/GYNECOLOGICAL Hx Genitourinary Disorders: Yes (pt does not void-ANURIC) Other/Comment: lmp 4 yrs ago - PSYCHIATRIC Hx Psychophysiologic Disorder: Yes Hx Anxiety: Yes Hx Depression: Yes Hx Substance Use: No - SURGICAL HISTORY Hx Appendectomy: Yes Hx Cardiac Catheterization: Yes Hx Coronary Stent: Yes (x6) Other/Comment: pt has old valarie shunt not in use and right arm fistula that is used for dialysis, c section, pt tripped and fx left leg and left ft had sx 2014 had hardware removed march 2016, pt denies fall, just tripped, r cw pac - ANESTHESIA Hx Anesthesia: Yes Hx Anesthesia Reactions: No Hx Malignant Hyperthermia: No Meds Allergies/Adverse Reactions: Allergies Allergy/AdvReac Type Severity Reaction Status Date / Time acetaminophen [From Percocet] AdvReac RASH Verified 01/15/17 17:01 codeine AdvReac RASH Verified 01/15/17 17:01 morphine AdvReac RASH Verified 01/15/17 17:01 oxycodone HCl [From Percocet] AdvReac RASH Verified 01/15/17 17:01 flu shot AdvReac SHORTNESS Uncoded 01/15/17 17:01 OF BREATH Physical Exam - Constitutional Appears: Non-toxic - Head Exam Head Exam: NORMOCEPHALIC - Eye Exam Eye Exam: Periorbital swelling, Periorbital tenderness - ENT Exam ENT Exam: Mucous Membranes Moist - Respiratory Exam Respiratory Exam: NORMAL BREATHING PATTERN - Cardiovascular Exam Cardiovascular Exam: +S1, +S2 - GI/Abdominal Exam GI & Abdominal Exam: Soft - Extremities Exam Extremities exam: Negative for: pedal edema - Neurological Exam Neurological exam: Alert - Psychiatric Exam Psychiatric exam: Normal Mood - Skin Skin Exam: Dry, Intact, Warm Results - Vital Signs Recent Vital Signs: Last Vital Signs Temp 98.2 F 01/15/17 12:13 Pulse 108 H 01/15/17 15:51 Resp 18 01/15/17 15:18 BP 159/94 H 01/15/17 15:52 Pulse Ox 98 01/15/17 15:18 - Labs Result Diagrams: 01/15/17 12:22 01/15/17 12:22 Labs: Laboratory Results - last 24 hr 01/15/17 15:47 POC Glucose (mg/dL) 75 Assessment & Plan - Assessment and Plan (Free Text) Assessment: 31F w/ PMHx of HTN, DM-1, ESRD, anemia, anxiety, and gastroparesis presents with hypoglycemia as well as complaints of left knee and left hip pain. Reports falling on face after falling out of bed early in the morning. Plan: 1. Hypoglycemia -Hold DM medications -D5NS -Q4H fingerstick glucose checks -F/u A1C -Renal diet consistent CHO 2.ESRD -Receives hemodialysis MWF -Completed 4 hours of hemodialysis -Dr. Lubin (nephrology) consulted; recs appreciated 3.Troponins, elevated -EKG, no acute changes noted -Hx of CAD, ESRD -Dr. Vega (cardiology) consulted; recs appreciated -Trend troponins -ASA, Plavix 4.) Chronic Pain -Resume Oxycodone (5m) 5.)Facial Trauma -F/u Maxillofacia CT scan results 6.) Hypokalemia -K level: 3.1 this is s/p dialysis -as per nephro recs, no indication to replace at this moment -Will monitor PPx: -Pepcid -SCDs Patient seen and examined w/ medical attending. Patient's assessment and plan discussed with attending. <Torsten Mckeon - Last Filed: 01/16/17 06:47> Results - Vital Signs Recent Vital Signs: Last Vital Signs Temp 98.2 F 01/15/17 18:58 Pulse 108 H 01/15/17 18:58 Resp 18 01/15/17 18:58 BP 159/94 H 01/15/17 18:58 Pulse Ox 98 01/15/17 15:18 - Labs Result Diagrams: 01/15/17 12:22 01/15/17 12:22 Labs: Laboratory Results - last 24 hr 01/15/17 01/15/17 01/15/17 15:47 16:59 22:30 POC Glucose (mg/dL) 75 67 Lactate Dehydrogenase 769 H Total Creatine Kinase 292 H CK-MB (CK-2) 3.4 CK-MB (CK-2) % Cancelled Troponin I 0.28 H* D Attending/Attestation - Attestation I have personally seen and examined this patient.: Yes I have fully participated in the care of the patient.: Yes I have reviewed all pertinent clinical information: Yes Notes (Text): 01/15/17 31 year old female with past medical history of hypertension, diabetes, chronic pain on opiates, gastroparesis, CAD, and ESRD on HD who presented from dialysis due to hypoglycemia. She is admitted for observation to monitoring fingersticks. Her insulin will be on hold. Will check A1c level. She also reported falling out of bed at home landing on her face. Will obtain CT maxillofacial study. Continue with dialysis for ESRD as per nephrology. Mildly elevated troponin noted; may be in setting of ESRD. Will trend and request for cardiology evaluation. She denies any chest pain and EKG does not show any acute changes. Continue with home medications except for insulin while monitoring her fingersticks every 4 hrs. Torsten Mckeon MD Hospitalist.
[2017-01-15] MEDS ORDERED: Pneumococcal 23-Valent Vaccine IM ONE (19:31)
[2017-01-15 19:32] VITALS: PULSE 108
--- NOTE | 2017-01-15 21:25 | CON ---
DATE: 01/15/2017 SERVICE: Cardiology. REASON FOR CONSULTATION: Chest pain, coronary artery disease, status post PTCA, status post coronary artery bypass graft, admitted with hypoglycemia and pain all over the body. BRIEF CLINICAL HISTORY: This is a 31-year-old female with past medical history of diabetes, hyperten nadege, hyperlipidemia, coronary artery disease, status post multiple stents, status post 2-vessel bypa ss at [facility] in 09/2015, came in with hypoglycemia and complaining of pain all ove r the body. The patient, unfortunately, hooked up with oxycodone and on pain medication and some reba g seeking behavior for the pain medication as well, though patient had definitely underlying coronary artery disease including CABG, including PTCAs in the past, end-stage renal disease, history of mitr al regurgitation and partially torn chordae for the mitral valve as well. PAST MEDICAL HISTORY: Significant for coronary artery disease, status post multiple stents in the pa st, history of recently CABG at [facility] in 09/2015, history of diabetes, hypertensi on, hyperlipidemia, history of end-stage renal disease on dialysis, history of gastrointestinal bleed , history of dialysis Wednesday, Wednesday, Wednesday. Previous cardiac workup as follows: The patient recently had BARRON done to rule out endocarditis with the patient admitted with mitral regurgitation and found to be normal LV function, ejection fraction 65%, moderate to severe mitral regurgitation, partially flail posterior leaflet, torn chordae language interpreter d to the posterior leaflet and slipping in and out to the inflow tract which is not a vegetation, but is a partially torn chordae, history of tricuspid regurgitation, mild plaque in descending aorta. PAST SURGICAL HISTORY: Significant for multiple PTCAs in the past, history of dialysis access, histo ry of CABG 09/2015. CURRENT MEDICATIONS: The patient is on clonidine, amlodipine, Ambien, metoprolol, insulin, enoxapari n, clopidogrel, aspirin, atorvastatin. ALLERGIES: ACETAMINOPHEN, CODEINE, MORPHINE, OXYCODONE, FLU SHOT. REVIEW OF SYSTEMS: As per HPI. PHYSICAL EXAMINATION: VITAL SIGNS: Temperature afebrile, heart rate 108, blood pressure 159/94. HEENT: PERRLA. Extraocular muscles intact. NECK: Supple. No carotid bruits. No thyromegaly. CHEST: Clear to auscultation. HEART: S1, S2 regular. ABDOMEN: Soft. EXTREMITIES: Clubbing and cyanosis negative. LABORATORY DATA: Blood workup as follows: WBC 6.5, hemoglobin 12, hematocrit 35, platelet count 212 . Chemistry shows sodium 141, potassium , chloride 99, carbon dioxide 32, anion gap of 13, BUN 15, creatinine 1.2, blood sugar 31. Troponin 0.12. IMPRESSION: Severe hypoglycemia, history of coronary artery disease, history of coronary artery bypa ss graft on 09/06/2015, 2-vessel coronary artery bypass graft, history of mitral regurgitation, moderat e to severe, history of partial flail posterior leaflet with torn chordae, history of multiple percut aneous transluminal coronary angioplasties, history of some drug seeking history, history of end-stag e renal disease on dialysis, history of diabetes, borderline troponin is positive, most likely second andrew to end-stage renal disease, on dialysis. RECOMMENDATION: Aggressive medical treatment, chest pain is atypical, but cannot rule out any gutiérrez ry event, though it is unlikely. At this point, suggest follow up serial CPKs, troponin. If the tro ponin remains negative at less than 1, aggressively treat, beta giuseppe, nitrates, and if remains sta ble, will be discharged tomorrow. Thank you, Dr. Mckeon, for providing the opportunity in taking care of this patient. Brittany Vega MD cc: [id number] TT: 01/15/2017 21:24:34 Confirmation # [id number] Dictation # [id number] paul
[2017-01-15 23:09] LABS: TROPONIN I 0.28 ng/mL
--- NOTE | 2017-01-16 04:12 | CP.PCM.DIS ---
<Bob Viveros - Last Filed: 01/16/17 04:12> Provider - Provider Date of Admission: 01/15/17 14:31 Attending physician: Torsten Mckeon MD Primary care physician: Christ Profile Required Time Spent in preparation of Discharge (in minutes): 45 Diagnosis - Discharge Diagnosis (1) Anemia Status: Chronic Priority: Medium (2) Hypoglycemia Status: Acute Priority: Low (3) Anxiety Status: Chronic Priority: Medium (4) ESRD (end stage renal disease) Status: Chronic Priority: Medium Hospital Course - Lab Results Lab Results: Most Recent Lab Values WBC 6.5 10^3/ul (4.5-11.0) 01/15/17 12: RBC 3.97 10^6/uL (3.5-6.1) 01/15/17 12:22 Hgb 12.0 gm/dL (12.0-16.0) 01/15/17 12:22 Hct 35.0 % (36.0-48.0) L 01/15/17 12:22 MCV 88.2 fL (80.0-105.0) 01/15/17 12:22 MCH 30.2 pg (25.0-35.0) 01/15/17 12: MCHC 34.3 g/dl (31.0-37.0) 01/15/17 12: RDW 17.2 % (11.5-14.5) H 01/15/17 12:22 Plt Count 212 10^3/uL (120.0-450.0) 01/15/17 12: Gran % 57.5 % (50.0-68.0) 01/15/17 12:22 Lymph % (Auto) 19.7 % (22.0-35.0) L 01/15/17 12:22 Phelps % (Auto) 16.7 % (1.0-6.0) H 01/15/17 12:22 Eos % (Auto) 5.3 % (1.5-5.0) H 01/15/17 12:22 Baso % (Auto) 0.8 % (0.0-3.0) 01/15/17 12: Gran # 3.71 (1.4-6.5) 01/15/17 12:22 Lymph # 1.3 (1.2-3.4) 01/15/17 12:22 Phelps # 1.1 (0.1-0.6) H 01/15/17 12:22 Eos # 0.3 (0.0-0.7) 01/15/17 12:22 Baso # 0.05 K/mm3 (0.0-2.0) 01/15/17 12:22 PT 12.8 Seconds (9.9-11.8) H 01/15/17 12:15 INR 1.19 (0.93-1.08) H 01/15/17 12:15 APTT 27.7 Seconds (23.7-30.8) 01/15/17 12:15 Sodium 141 mmol/L (132-148) 01/15/17 12:22 Potassium 3.1 mmol/L (3.6-5.0) L 01/15/17 12:22 Chloride 99 mmol/L (98-107) 01/15/17 12:22 Carbon Dioxide 32 mmol/L (21-33) 01/15/17 12:22 Anion Gap 13 (10-20) 01/15/17 12:22 BUN 15 mg/dL (7-21) 01/15/17 12:22 Creatinine 2.0 mg/dL (0.5-1.4) H 01/15/17 12:22 Est GFR ( Amer) 35 01/15/17 12:22 Est GFR (Non-Af Amer) 29 01/15/17 12:22 POC Glucose (mg/dL) 67 mg/dL (65-110) 01/15/17 16:59 Random Glucose 66 mg/dL (70-110) L 01/15/17 12:22 Calcium 9.4 mg/dL (8.4-10.5) 01/15/17 12:22 Total Bilirubin 1.7 mg/dL (0.2-1.3) H 01/15/17 12:22 AST 82 U/L (15-39) H 01/15/17 12:22 ALT 53 U/L (7-56) 01/15/17 12:22 Alkaline Phosphatase 427 U/L (38-133) H 01/15/17 12:22 Lactate Dehydrogenase 769 U/L (333-699) H 01/15/17 22:30 Total Creatine Kinase 292 U/L (35-230) H 01/15/17 22:30 CK-MB (CK-2) 3.4 ng/mL (0.0-3.6) 01/15/17 22:30 CK-MB (CK-2) % Cancelled 01/15/17 12:22 Troponin I 0.28 ng/mL H* D 01/15/17 22:30 Total Protein 7.8 g/dL (5.8-8.3) 01/15/17 12:22 Albumin 4.1 g/dL (3.0-4.8) 01/15/17 12:22 Globulin 3.7 gm/dL 01/15/17 12:22 Albumin/Globulin Ratio 1.1 (1.1-1.8) 01/15/17 12:22 - Hospital Course Hospital Course: 31 y/o F with PMH of HTN, DM-1, ESRD, anemia, anxiety, and gastroparesis presents to the ED after hypoglycemic episode at her dialysis center. Pt was given 2 amps of D50 and also Narcan in ED. Pt became much more responsive at this time. Pt was able to answer commands and questions appropriately. Pt stated she fell and hit her face and CT scan was ordered, however pt did not stay in the hospital long enough to receive the scan. Pt was then admitted to telemetry for further observation. Pt received dilaudid and benadryl on the floor by adult and pediatric neurologist. Pt proceeded to continue to ask for pain medication and benadryl to help her sleep. Once pt did not receive any medication, she stated she wanted to leave AMA. Risks and complications of leaving were discussed with the patient. All forms were appropriately signed and nursing staff was there to witness. Pt was also advised to return to the hospital for any worsening of symptoms or any new onset severe symptoms. Discharge Exam - Head Exam Head Exam: NORMOCEPHALIC - Eye Exam Eye Exam: EOMI, Normal appearance, Periorbital swelling (b/l), Periorbital tenderness - ENT Exam ENT Exam: Mucous Membranes Dry - Respiratory Exam Respiratory Exam: NORMAL BREATHING PATTERN, UNREMARKABLE - Cardiovascular Exam Cardiovascular Exam: RRR, +S1, +S2 - GI/Abdominal Exam GI & Abdominal Exam: Normal Bowel Sounds, Soft. absent: Tenderness - Extremities Exam Extremities exam: pedal edema - Neurological Exam Neurological exam: Alert, CN II-XII Intact, Oriented x3 - Skin Skin Exam: Normal Color, Warm Discharge Plan - Follow Up Plan Condition: GOOD Disposition: AGAINST MEDICAL ADVICE Additional Instructions: Patient left AMA Referrals: Christ Granger, [Primary Care Provider] - <Torsten Mckeon - Last Filed: 01/16/17 06:50> Provider - Provider Date of Admission: 01/15/17 14:31 Attending physician: Torsten Mckeon MD Primary care physician: Christ Gardiner Required Hospital Course - Lab Results Lab Results: Most Recent Lab Values WBC 6.5 10^3/ul (4.5-11.0) 01/15/17 12:22 RBC 3.97 10^6/uL (3.5-6.1) 01/15/17 12:22 Hgb 12.0 gm/dL (12.0-16.0) 01/15/17 12: Hct 35.0 % (36.0-48.0) L 01/15/17 12:22 MCV 88.2 fL (80.0-105.0) 01/15/17 12:22 MCH 30.2 pg (25.0-35.0) 01/15/17 12:22 MCHC 34.3 g/dl (31.0-37.0) 01/15/17 12: RDW 17.2 % (11.5-14.5) H 01/15/17 12:22 Plt Count 212 10^3/uL (120.0-450.0) 01/15/17 12: Gran % 57.5 % (50.0-68.0) 01/15/17 12:22 Lymph % (Auto) 19.7 % (22.0-35.0) L 01/15/17 12:22 Phelps % (Auto) 16.7 % (1.0-6.0) H 01/15/17 12:22 Eos % (Auto) 5.3 % (1.5-5.0) H 01/15/17 12:22 Baso % (Auto) 0.8 % (0.0-3.0) 01/15/17 12: Gran # 3.71 (1.4-6.5) 01/15/17 12:22 Lymph # 1.3 (1.2-3.4) 01/15/17 12:22 Phelps # 1.1 (0.1-0.6) H 01/15/17 12:22 Eos # 0.3 (0.0-0.7) 01/15/17 12:22 Baso # 0.05 K/mm3 (0.0-2.0) 01/15/17 12:22 PT 12.8 Seconds (9.9-11.8) H 01/15/17 12:15 INR 1.19 (0.93-1.08) H 01/15/17 12:15 APTT 27.7 Seconds (23.7-30.8) 01/15/17 12:15 Sodium 141 mmol/L (132-148) 01/15/17 12:22 Potassium 3.1 mmol/L (3.6-5.0) L 01/15/17 12:22 Chloride 99 mmol/L (98-107) 01/15/17 12:22 Carbon Dioxide 32 mmol/L (21-33) 01/15/17 12:22 Anion Gap 13 (10-20) 01/15/17 12:22 BUN 15 mg/dL (7-21) 01/15/17 12:22 Creatinine 2.0 mg/dL (0.5-1.4) H 01/15/17 12:22 Est GFR ( Amer) 35 01/15/17 12:22 Est GFR (Non-Af Amer) 29 01/15/17 12:22 POC Glucose (mg/dL) 67 mg/dL (65-110) 01/15/17 16:59 Random Glucose 66 mg/dL (70-110) L 01/15/17 12:22 Calcium 9.4 mg/dL (8.4-10.5) 01/15/17 12:22 Total Bilirubin 1.7 mg/dL (0.2-1.3) H 01/15/17 12:22 AST 82 U/L (15-39) H 01/15/17 12:22 ALT 53 U/L (7-56) 01/15/17 12:22 Alkaline Phosphatase 427 U/L (38-133) H 01/15/17 12:22 Lactate Dehydrogenase 769 U/L (333-699) H 01/15/17 22:30 Total Creatine Kinase 292 U/L (35-230) H 01/15/17 22:30 CK-MB (CK-2) 3.4 ng/mL (0.0-3.6) 01/15/17 22:30 CK-MB (CK-2) % Cancelled 01/15/17 12:22 Troponin I 0.28 ng/mL H* D 01/15/17 22:30 Total Protein 7.8 g/dL (5.8-8.3) 01/15/17 12:22 Albumin 4.1 g/dL (3.0-4.8) 01/15/17 12:22 Globulin 3.7 gm/dL 01/15/17 12:22 Albumin/Globulin Ratio 1.1 (1.1-1.8) 01/15/17 12:22 Attending/Attestation - Attestation I have reviewed all pertinent clinical information, including history, physical exam and plan: Yes Notes (Text): 01/16/17 06:48 31 year old female with past medical history of hypertension, diabetes, chronic pain on opiates, gastroparesis, CAD, and ESRD on HD who presented from dialysis due to hypoglycemia. She was admitted for observation to monitoring fingersticks. Her insulin was held. She also reported falling out of bed at home landing on her face and CT maxillofacial study was ordered and pending. Nephrology consultation was requested for HD for ESRD. She had mildly elevated troponin noted; may be in setting of ESRD. Cardiology evaluation was requested along with serial cardiac enzymes. She was resumed on her home dose of oxycodone but she was demanding iv dilaudid and benadryl. Overnight she signed out AMA. Torsten Mckeon MD Hospitalist.
[2017-01-16] MEDS ORDERED: Metoprolol Succinate 50 mg XL Tab PO SCH (08:00)
--- NOTE | 2017-01-16 09:44 | CARD ---
APPROVED REPORT EKG Measurement Heart [id number] MI 130P50 [id number] <Conclusion> Sinus tachycardia Possible Left atrial enlargement Low voltage QRS Right bundle branch block LAHB Inferior infarct, old NSSTW changes Prolonged QTc No change
[2017-01-16] MEDS ORDERED: CLONIDINE 0.3 MG PO SCH (10:00)
[2017-01-16] MEDS ORDERED: oxyCODONE 5 mg Immediate Release Tab PO SCH (10:00)
== END 2017-01-15 23:27 | disposition left against medical advice (07) | DRG 811 ==
LOC: ED 11:57 → ERH 14:31 → 2RNO 17:09
PROVIDERS: ADMIT Internal Medicine; ATTEND Internal Medicine
DX: D64.9 Anemia, unspecified (principal); N18.6 End stage renal disease; R34 Anuria and oliguria; E10.649 Type 1 diabetes mellitus with hypoglycemia without coma; E10.22 Type 1 diabetes mellitus with diabetic chronic kidney disease; I12.0 Hypertensive chronic kidney disease with stage 5 chronic kidney disease or end stage renal disease; I08.1 Rheumatic disorders of both mitral and tricuspid valves; E10.43 Type 1 diabetes mellitus with diabetic autonomic (poly)neuropathy; K31.84 Gastroparesis; W06.XXXA Fall from bed, initial encounter; Z99.2 Dependence on renal dialysis; Z95.5 Presence of coronary angioplasty implant and graft; Z95.1 Presence of aortocoronary bypass graft; Z90.49 Acquired absence of other specified parts of digestive tract; F32.89 Other specified depressive episodes; E78.5 Hyperlipidemia, unspecified; E87.6 Hypokalemia; F41.9 Anxiety disorder, unspecified; G89.29 Other chronic pain; I25.10 Atherosclerotic heart disease of native coronary artery without angina pectoris; L29.9 Pruritus, unspecified; Y92.230 Patient room in hospital as the place of occurrence of the external cause; Z79.4 Long term (current) use of insulin; Z79.891 Long term (current) use of opiate analgesic; K81.9 Cholecystitis, unspecified; Z87.81 Personal history of (healed) traumatic fracture; Z88.6 Allergy status to analgesic agent; Z88.5 Allergy status to narcotic agent; Z88.7 Allergy status to serum and vaccine; R40.2412 Glasgow coma scale score 13-15, at arrival to emergency department; R00.0 Tachycardia, unspecified; M25.562 Pain in left knee; M25.552 Pain in left hip